=== PATIENT | female | born 1940 | race Caucasian/White ===

== ENCOUNTER 2020-08-09 12:03 | Inpatient (IN) | payer MEDICARE, OTHER ==
[~2020-08-09] VITALS: Ht 147.3 cm; Wt 68.2 kg
[~2020-08-09 12:03] MED LIST: Estradiol0.5 MG PO; FISH1000; GEMF600 PO; Hydrocodone-Ap1 EA23 PO; LANS30EC PO; LOSHYD PO; SIMV10 PO; VITAMIN D32000 UNIT PO
[2020-08-09 13:38] LABS: Albumin, Blood 2.9 g/dL (3.4-5.0); Albumin/Globulin Ratio 0.7 (0.8-1.8); Bilirubin, Total 4.7 mg/dL (0.1-1.0); Bun/Creatinine Ratio 15.6 (12.0-20.0); Calcium, Blood 9.4 mg/dL (8.5-10.1); Creatinine, Blood 1.73 mg/dL (0.40-1.00); Globulin, Blood 4.4 g/dL (2.2-4.0); Potassium, Blood 3.9 mmol/L (3.5-5.5); Total Protein, Blood 7.3 g/dL (6.4-8.2); Troponin I 0.058 ng/mL (0.000-0.040)
[2020-08-09 14:23] LABS: Hematocrit 39.6 % (33.0-51.0); Hemoglobin 12.2 g/dL (11.5-16.0); Mean Corpuscular HGB 28.1 pg (26.0-34.0); Mean Corpuscular HGB Conc 30.8 g/dL (31.5-36.5); Mean Corpuscular Volume 91 fL (80-100); Mean Platelet Volume 11.7 fL (9.1-12.4); NRBC ABSOLUTE 0.02 K/mm3 (0.00-0.02); NRBC Auto 0.3 /100 WBC (0.0-0.2); Platelet Count 118 K/mm3 (150-400); RDW Coefficient Variation 17.7 % (11.7-14.2); RDW Standard Deviation 59.5 fL (35.1-46.3); Red Blood Cell Count 4.34 M/mm3 (3.80-5.20); White Blood Cell Count 5.86 K/mm3 (4.00-11.30)
[2020-08-09 14:53] LABS: BAND PERCENT MAN 10 % (0-8); BASOPHILS PERCENT MAN 0 % (0-2); EOSINOPHILS PERCENT MAN 0 % (0-6); LYMPHOCYTES ABSOLUTE MAN 0.58 K/mm3 (0.84-5.20); LYMPHOCYTES PERCENT MAN 10 % (21-46); METAMYELOCYTE ABSOLUTE MAN 0.05 K/mm3 (0.00-0.00); METAMYELOCYTE PERCENT MAN 1 % (0-0); MONOCYTES ABSOLUTE MAN 0.05 K/mm3 (0.16-1.47); MONOCYTES PERCENT MAN 1 % (4-13); NEUTROPHILS ABSOLUTE MAN 5.15 K/mm3 (1.96-9.15); SEG NEUTROPHILS PERCENT MAN 78 % (41-73); TOTAL CELLS COUNTED 100
[2020-08-09] MEDS ORDERED: LEVSOD100 PO (15:17)
[2020-08-09] MEDS ORDERED: CLOP75 PO (15:18)
[2020-08-09] MEDS ORDERED: FENOFIBRATE48 MG PO (15:18)
[2020-08-09] MEDS ORDERED: LATA.005SO BOTHEYES (15:18)
[2020-08-09] MEDS ORDERED: AMLO10 PO (15:18)
[2020-08-09] MEDS ORDERED: PANTOPRAZOLE SO40 M2 PO (15:19)
[2020-08-09] MEDS ORDERED: METOPROLOL TART50 M2 PO (15:19)
[2020-08-09] MEDS ORDERED: LOSARTAN POTAS100 M1 PO (15:19)
[2020-08-09] MEDS ORDERED: ROSUVASTATIN CA10 MG PO (15:20)
[2020-08-09] MEDS ORDERED: SODBIC650 PO (15:48)
[2020-08-09 16:08] LABS: Influenza A, PCR NEGATIVE (NEGATIVE); Influenza B, PCR NEGATIVE (NEGATIVE); Resp Syncytial Virus, PCR NEGATIVE (NEGATIVE); SARS-Cov-2 (COVID-19) PCR, MMC NEGATIVE (NEGATIVE)
[2020-08-09 17:45] LABS: PO2 Arterial 306 mmHg (80-100)
[2020-08-09 17:48] LABS: PCO2 Arterial 19.3 mmHg (35-45); pH Blood Arterial 7.22 (7.35-7.45)
--- NOTE | 2020-08-09 19:27 | NUR ---
Admission/[place] of Care: Patient arrived from ED at approx 1830hr, via stretcher, accompanied by RT and x2 ED RN's. Patient BP of systolic 90's upon arrival with levophed gtt infusing at 20mcg/min through peripheral IV in the rt wrist. Peripheral patent and intact upon arrival. Versed gtt also infusing at 4mg/hr. Unable to obtain further Bp's upon patient's arrival, spO2-98-100%, and HR showed sinus rhythm 100-110. Versed gtt then stopped. Dr. Sanders then to pt's room upon arrival. Informed Dr. Sanders of pt's status and received plan to set-up for Central venous line and arterial line. Central venous and arterial line then placed by Dr. Sanders in rt femoral, without difficulty. While lines being placed, received orders for Vasopressin, Bicarb gtt, and propofol gtt (per Dr. Sanders), all started through peripheral IV's in rt wrist and forarm. Non-invasive BP obtained to lt leg durine line placement, systolic in the 80's. Arterial line zeroed with adequate waveform on monitor, systolic in low 100's at shift change. OG tube to low intermittent suction, minimal clear drainage in tubing. Tolerating vent setting's without difficulty, AC 24/390/5/40%. Bedside report given to NOC shift RN.
[2020-08-09 19:52] LABS: Base Excess Venous -20.6 mmol/L; Bicarbonate Venous 10.5 mmol/L (24.0-30.0); PCO2 Venous 19.8 mmHg (38-42); PO2 Venous 221 mmHg (38-42); pH Blood Venous 7.19 (7.34-7.37)
[2020-08-09 20:07] LABS: International Normalized Ratio 1.6; Prothrombin Time Results 16.7 Sec (9.7-11.5)
--- NOTE | 2020-08-09 21:20 | NUR ---
DR. RIZVI CALLED DR. RIZVI WITH CTA OF ABDOMEN AND PELVIS RESULTS, WELL CRITICAL LABS. ORDERS ALREADY PLACED FOR BICARB PUSH 125MEQ STAT, WELL INCREASE GTT TO 150ML/HR.
--- NOTE | 2020-08-09 21:52 | NUR ---
DR. TIPTON CALLED DR. TIPTON TO INFORM HIM OF PNEUMOBILIA FROM CTA RESULTS. NO NEW ORDERS OR INTERVENTIONS AT THIS TIME.
--- NOTE | 2020-08-09 22:45 | NUR ---
ASSUMED PT CARE FROM JOSE MARCELINO AT [address] DR. RIZVI AT BEDSIDE PLACING CENTRAL LINE AND ARTERIAL LINE TO RIGHT FEMORAL SITE. INTUBATED AND SEDATED WITH PROPOFOL AT 15MCG/KG/MIN. VENT AC 24, VT 390, PEEP 5, FIO2 40%, RESP RATE 30'S. LEVOPHED AT 20MCG/MIN AND VASOPRESSIN AT 0.04 UNITS/MIN. BP SYSTOLIC 80'S FROM NON-INVASIVE PRESSURE THAT WAS OBTAINED ON LLE. UPON ARTERIAL LINE INSERTION, LINE WAS ZERO'D WITH PRESSURES 110-120'S SYSTOLIC. ORDERS FOR STAT CTA, WHICH PT WAS TRANSPORTED TO AROUND 2004 WITH RT TO MANAGE VENT. UPON RETURN FROM CT PT NOTED TO HAVE A MEDIUM, LIGHT KINSEY BOWEL MOVEMENT. ABDOMEN IS MODERATELY DISTENDED AND FIRM UPON PALPATION WITH HYPOACTIVE TONES TO UPPER QUADRANTS AND HYPERACTIVE TO LOWER QUADRANTS. MENDOZA CATHETER IS PATENT AND DRAINING CLEAR, BUT ORANGE COLORED URINE TO GRAVITY. TEMP 101.8. WAS UPDATED BY DR. RIZVI PRIOR TO HIM LEAVING FACILITY.
[2020-08-10 00:43] LABS: Base Excess Venous -12.7 mmol/L; Bicarbonate Venous 14.8 mmol/L (24.0-30.0); PCO2 Venous 32.4 mmHg (38-42); PO2 Venous 38.1 mmHg (38-42)
[2020-08-10 00:44] LABS: pH Blood Venous 7.26 (7.34-7.37)
[2020-08-10 01:01] LABS: Adenovirus F 40/41 Not Detected (NOT DETECT); Astrovirus Not Detected (NOT DETECT); Campylobacter Sp Not Detected (NOT DETECT); Cryptosporidium Not Detected (NOT DETECT); Cyclospora Cayetanensis Not Detected (NOT DETECT); E. Coli O157 Not Detected (NOT DETECT); Entamoeba Histolytica Not Detected (NOT DETECT); Enteroaggregative E. coli-EAEC Not Detected (NOT DETECT); Enteropathogenic E. coli-EPEC Not Detected (NOT DETECT); Enterotoxigenic E. coli-ETEC Not Detected (NOT DETECT); Giardia Lamblia Not Detected (NOT DETECT); Norovirus GI/GII Not Detected (NOT DETECT); Plesiomonas Shigelloides Not Detected (NOT DETECT); Rotavirus A Not Detected (NOT DETECT); Salmonella Sp Not Detected (NOT DETECT); Sapovirus Not Detected (NOT DETECT); Shiga Toxin-prod E. coli-STEC Not Detected (NOT DETECT); Shigella/Enteroin E. coli-EIEC Not Detected (NOT DETECT); Vibrio Cholerae Not Detected (NOT DETECT); Vibrio Sp Not Detected (NOT DETECT); Yersinia Enterocolitica Not Detected (NOT DETECT)
--- NOTE | 2020-08-10 03:33 | NUR ---
CALL TO DR. RIZVI D/T INCREASE IN PRESSOR REQUIREMENT. NEW ORDERS FOR EPI GTT AND OKAY TO DRAW AN ABG FROM THE ARTERIAL LINE INSTEAD OF A VBG.
[2020-08-10 03:43] LABS: PCO2 Arterial 23.3 mmHg (35-45); PO2 Arterial 83.7 mmHg (80-100); pH Blood Arterial 7.35 (7.35-7.45)
[2020-08-10 03:51] LABS: Source, Urine Clean Catch
[2020-08-10 03:57] LABS: Hematocrit 29.1 % (33.0-51.0); Hemoglobin 9.3 g/dL (11.5-16.0); Mean Corpuscular HGB 28.4 pg (26.0-34.0); Mean Corpuscular Volume 89 fL (80-100); Mean Platelet Volume 12.1 fL (9.1-12.4); NRBC ABSOLUTE 0.03 K/mm3 (0.00-0.02); NRBC Auto 0.3 /100 WBC (0.0-0.2); Platelet Count 72 K/mm3 (150-400); RDW Coefficient Variation 18.1 % (11.7-14.2); RDW Standard Deviation 60.4 fL (35.1-46.3); Red Blood Cell Count 3.27 M/mm3 (3.80-5.20); White Blood Cell Count 10.96 K/mm3 (4.00-11.30)
[2020-08-10 04:06] LABS: Blood, Urine 5+ (Neg); Glucose Qualitative, Urine Neg (Neg); Ketones, Urine 1+ (Neg); Leukocyte Esterase, Urine 1+ (Neg); Nitrite, Urine Pos (Neg); Protein, Urine 3+ (Neg); Specific Gravity, Urine 1.015 (1.003-1.022); Urobilinogen, Urine 1+ (Normal)
[2020-08-10 04:09] LABS: Appearance, Urine Hazy (Clear); Bilirubin, Urine 2+ (Neg); Color, Urine Amber (P-Yellow)
[2020-08-10 04:18] LABS: Amorphous Light (0-Heavy); Bacteria Many /hpf; Red Blood Cells, Urine 0-2 /hpf (0-2); Squamous Epithelial Cells Few /hpf (Few)
[2020-08-10 04:33] LABS: Magnesium, Blood 1.4 mg/dL (1.6-2.4)
[2020-08-10 04:39] LABS: Albumin/Globulin Ratio 0.6 (0.8-1.8); Bilirubin, Total 4.3 mg/dL (0.1-1.0); Bun/Creatinine Ratio 14.5 (12.0-20.0); Creatinine, Blood 2.56 mg/dL (0.40-1.00); Globulin, Blood 3.1 g/dL (2.2-4.0); Phosphorus, Blood 4.1 mg/dL (2.5-4.9); Potassium, Blood 3.1 mmol/L (3.5-5.5); Troponin I 3.73 ng/mL (0.000-0.040)
[2020-08-10 04:40] LABS: Calcium, Blood 6.7 mg/dL (8.5-10.1); Total Protein, Blood 5.1 g/dL (6.4-8.2)
--- NOTE | 2020-08-10 05:15 | NUR ---
CHANGE IN CONDITION/END OF SHIFT SUMMARY CRITICAL LAB RESULTS OF LACTIC ACID 11.6 AND TROPONIN OF 3.73, WHICH WERE CALLED TO DR. RIZVI, WELL UPDATED ON INCREASED PRESSOR REQUIREMENTS. NEW ORDERS FOR 2L BOLUS OF NS, WELL TO START NEOSYNEPHRINE GTT INSTEAD OF EPI GTT. ORDERS TO CALL DR. TIPTON REGARDING CHANGE IN CONDITION, WELL TO OBTAIN STAT ECHO AND LIVER ULTRASOUND PENDING DR. TIPTON'S DECISION TO TAKE PT TO SURGERY. CALLED DR. TIPTON IN REGARDS TO PT'S OVERALL DECLINE AND INCREASE NEED FOR PRESSORS, WELL CONCERN FOR PNEUMOBILIA RESULTS FROM CTA OF ABDOMEN. DR. TIPTON ACKNOWLEDGED AND PLAN IS FOR HIM TO COME ASSESS PT FOR SURGERY. DR. RIZVI CALLED BACK WITH AN UPDATE REGARDING DR. TIPTON'S DECISION; NEW ORDERS TO CONTINUE ON WITH THE STAT ECHO AND TO OBTAIN EKG. NS BOLUS CURRENTLY INFUSING. NEOSYNEPHRINE AT 10MCG/MIN, LEVOPHED 20MCG/MIN, VASOPRESSIN AT 0.04 UNITS/MIN AND BP'S STABLE 110-120'S; MAP'S >65 AT THIS TIME. BICARB GTT DROPPED TO 100MLS/HR PER DR. RIZVI, WELL ELECTROLYTE REPLACEMENT OF BOTH CALCIUM AND POTASSIUM. VENT SETTINGS REMAIN UNCHANGED AT AC 24, VT 390, PEEP 5, FIO2 40%; RESP RATE 26. BIOX PROBE TO FOREHEAD D/T PT VERY COOL TO THE TOUCH WITH POOR PERIPHERAL PERFUSION. ARTERIAL LINE REMAINS TO RIGHT FEMORAL SITE; GOOD WAVEFORM WITH DICROTIC NOTCH. CENTRAL LINE TO RIGHT FEMORAL SITE WELL; DRESSING CHANGED THIS SHIFT. ABDOMEN REMAINS VERY DISTENDED AND FIRM UPON PALPATION; NEW ORDERS FOR ABDOMINAL PRESSURES. OG TO LIS WITH NO OUTPUT. PROPOFOL AT 30MCG/KG/MIN. PT WAS DOWN TO 15MCG/KG/MIN; HOWEVER, WASN'T TOLERATING VENT WELL AND CONTINUED TO HAVE COUGHING EPISODES; PT APPEARS MORE COMFORTABLE AT THIS TIME. PRIOR TO INCREASING PROPOFOL PT WAS ABLE TO BARELY OPEN HER EYES UPON VERBAL COMMAND; HOWEVER, UNABLE TO FOLLOW ANY COMMANDS. POSITIVE GAG REFLEX WELL. PUPILS REMAIN UNEQUAL WITH RIGHT IRREGULARLY SHAPED; HOWEVER, BOTH ARE REACTIVE TO LIGHT. HAS BEEN CALLED AND IS ON HIS WAY IN D/T DECLINE IN PT'S CONDITION. WILL CONTINUE TO MONTIOR UNTIL REPORT IS HANDED OFF TO ONCOMING RN
[2020-08-10 05:31] LABS: BAND PERCENT MAN 15 % (0-8); BASOPHILS PERCENT MAN 1 % (0-2); EOSINOPHILS ABSOLUTE MAN 0.32 K/mm3 (0.00-0.68); EOSINOPHILS PERCENT MAN 3 % (0-6); LYMPHOCYTES ABSOLUTE MAN 0.87 K/mm3 (0.84-5.20); LYMPHOCYTES PERCENT MAN 8 % (21-46); METAMYELOCYTE ABSOLUTE MAN 0.21 K/mm3 (0.00-0.00); METAMYELOCYTE PERCENT MAN 2 % (0-0); MONOCYTES ABSOLUTE MAN 0.98 K/mm3 (0.16-1.47); MONOCYTES PERCENT MAN 9 % (4-13); MYELOCYTE PERCENT MAN 1 % (0-0); NEUTROPHILS ABSOLUTE MAN 8.32 K/mm3 (1.96-9.15); SEG NEUTROPHILS PERCENT MAN 61 % (41-73); TOTAL CELLS COUNTED 100
--- NOTE | 2020-08-10 06:33 | NUR ---
DR. TIPTON AT BEDSIDE WITH DISCUSSING PLAN OF CARE
--- NOTE | 2020-08-10 06:48 | NUR ---
DR. TIPTON SPOKE WITH PT'S GRANDSON WHOM IS AN INFECTIOUS DISEASE PHYSICIAN AT [facility]. GRANDSON WOULD LIKE TO SPEAK WITH DR. RIZVI BEFORE FURTHER DECISIONS ARE MADE.
--- NOTE | 2020-08-10 06:59 | NUR ---
KIER PLEATER AT BEDSIDE
--- NOTE | 2020-08-10 08:00 | NUR ---
PT REMAINS INTUBATED, SEDATED, AND RESTRAINED. SEDATED ON PROPOFOL @ 30 MCG/KG/MIN. PT GRIMACING, AGITATED, PULLING ON RESTRAINTS. RR 32-MED WITH FENTANYL 50 MCG IVP X1 FOR PAIN/SEDATION ADJUNCT. PT REMAINS FEBRILE. HR 110-120'S SINUS TACH. MAP 60-65 WITH LEVOPHED @ 30 MCG/MIN, VASOPRESSIN @0.04 UNITS/MIN, NEOSYNEPHRINE @ 30 MCG/KG/MIN. LUNGS COARSE R>L. SATS >90% ON VENT:AC 24, TV 390, PEEP 5, FIO2 40% OGT TO LIS WITH SCANT AMOUNT OF BILIOUS DRAINAGE. ABDOMEN DISTENDED AND FIRM-NO BT'S AUSCULTATED. MENDOZA TO BEDSIDE DRAINAGE WITH SCANT AMOUNT OF DARK, CARLA URINE OUTPUT. SPOKE WITH DR. RIZVI. UPDATED TO CURRENT VS, STATUS, LABS. ORDERS GIVEN FOR MG+REPLACEMENT-SEE EMAR. K+ REPLACEMENT INFUSING-SEE EMAR. ABG AND LACTIC ACID DRAWN AND RUN STAT. PT SPOUSE @ BEDSIDE. AWAITING ARRIVAL OF PT GRANDSON WHO IS A PHYSICIAN. WILL DISCUSS PLAN OF CARE AT THAT TIME.
[2020-08-10 08:28] LABS: PCO2 Arterial 24.8 mmHg (35-45); PO2 Arterial 70.2 mmHg (80-100); pH Blood Arterial 7.31 (7.35-7.45)
--- NOTE | 2020-08-10 09:45 | NUR ---
DR. RIZVI IN TO SEE PT AND DISCUSS PLAN OF CARE WITH FAMILY. PT MADE DNR. DR. VICTOR FROM RADIOLOGY CONTACTED BY DR. RIZVI REQUESTING PLACEMENT OF CHOLYCYSTOSTOMY TUBE. DR. VICTOR TO COME BY LATER TODAY. HEPARIN HAS BEEN HELD.
--- NOTE | 2020-08-10 12:12 | NUR ---
MAINTAINING MAP 60-65 ON VASOPRESSIN @ 0.04 UNITS/KG/MIN AND LEVOPHED@ 20 MCG/MIN. SATS>90% ON FIO2 40%-NO VENT CHANGES. SUPRAPUBIC PRESSURE 13. RADIOLOGY HERE TO PLACE CHOLYCYSTECTOMY TUBE. INFROMED CONSENT OBTAINED OVER THE PHONE FROM PT GRANDALAYNA BARRETT AND HER SPOUSE ROBERTA.
--- NOTE | 2020-08-10 14:00 | NUR ---
PT TO CT SCAN OF ABDOMEN FOR RADIOLOGY TO PLACE CHOLYCYSTOTOMY TUBE. PT TOLERATED WELL. APROX. 30 CC OB BILIOUS FLUID ASPIRATED AND SENT TO LAB. DR. RIZVI ORDERED LABS ON THE FLUID SENT. CHOLYCYSTOTOMY TUBE TO GRAVITY DRAINAGE. SMALL AMOUNT OF SEROSANGINOUS DRAINAGE TO DRAIN TUBING AND SMALL AMOUNT OF PURULENT DRAINAGE NOTED.
[2020-08-10 14:52] LABS: Automated BF RBC Count 0.004 M/mm3 (0-0); Body Fluid WBC Count 2148 /mm3 (0-999); RBC Count, Body Fluid 4000 /mm3 (0-0)
[2020-08-10 14:55] LABS: Automated BF WBC Count 2.148 K/mm3 (0-999)
[2020-08-10 15:38] LABS: PCO2 Arterial 22.3 mmHg (35-45); PO2 Arterial 73.5 mmHg (80-100); pH Blood Arterial 7.32 (7.35-7.45)
[2020-08-10 16:10] LABS: Total Cell Count, Body Fluid 100
[2020-08-10 16:11] LABS: Appearance, Body Fluid Cloudy (Clear)
--- NOTE | 2020-08-10 16:40 | NUR ---
PT REMAINS INTUBATED, SEDATED, AND RESTRAINED. PROPOFOL @ 30 MCG/KG/MIN AND FENTANYL 50 MCG IVP FOR PAIN/SEDATION ADJUNCT-SEE EMAR. ECG SHOWS INTERMITTENT AFIB VS. SR WITH FREQUENT PAC'S. MAP 60-65 WITH LEVOPHED @ 20MCG/MIN AND VASOPRESSIN @ 0.04 UNITS/MIN. LUNGS REMAIN COARSE. NO VENT CHANGES. MAINTAINS SATS>90% ON FIO2 40% SPUTUM SPECIMEN SENT. CHOLYCYSTOTOMY TUB WITH SMALL AMOUNT OF SEROSANGINOUS DRAINAGE. STILL SCANT AMOUNT OF PURULENT DRAINAGE TO TUBING. ABG AND LACTIC ACID DRAWN. RESULTS PHONED TO DR. RIZVI NO NEW ORDERS. ALSO, REVIEWED CURRENT VS AND I&O WITH DR. RIZVI NO NEW ORDERS.
--- NOTE | 2020-08-10 23:25 | NUR ---
ASSUMED PT CARE FROM JOSE LOYA AT 1915 PT REMAINS INTUBATED AND SEDATED. PROPOFOL AT 30MCG/KG/MIN. VENT AC 24, VT 390, PEEP 5, FIO2 40%. RESP RATE 24. BIOX >90%. ARTERIAL LINE TO RIGHT FEMORAL SITE, WHICH WAS ZEROED; PRESSURES STABLE, SEE FLOWSHEET. LEVOPHED AT 10MCG/ZAIDA. VASOPRESSIN AT 0.04 UNITS/MIN UPON ASSUMPTION OF CARES; HOWEVER, CURRENTLY VASOPRESSIN IS OFF ADN LEVOPHED IS AT 5MCG/MIN. BICARB INFUSING AT 100MLS/HR VIA CENTRAL LINE TO RIGHT FEMORAL SITE. ABDOMINAL PRESSURES OBTAINED OF 12. MENDOZA CATHETER IS PATENT AND DRAINING DARK CARLA COLORED URINE. ABDOMEN REMAINS DISTENDED AND FIRM WITH HYPOACTIVE TONES. LUNG SOUNDS REMAIN CLEAR WITH OCCASIONAL COUGH; THICK PLUGS SUCTIONED THAT ARE KINSEY IN COLOR. ORAL CARES COMPLETED WITH STREAKED BLOOD NOTED WITH DEEP SUBGLOTTIC SUCTIONING. PT NOTED TO BE IN A FIRST DEGREE AV BLOCK WITH OCCASIONAL WHAT APPEARS TO BE JUNCTIONAL BEATS. THEREFORE, EKG OBTAINED D/T RHYTHM CHANGE. EKG RESULTS INDICATE A 1ST DEGREE AV BLOCK WITH FUSION COMPLEXES. DURING BRIEF SEDATION VACATION PT WAS ABLE TO OPEN EYES TO VERBAL STIMULI; HOWEVER, UNABLE TO FOLLOW COMMANDS. PURPOSEFUL MOVEMENT TOWARD ETT WITH LEFT HAND. MOVES ALL EXTREMITIES. HOWEVER, D/T PT HAVING CONTINUOUS COUGHING EPISODES WITH HIGH PEAK PRESSURES; PROPOFOL INCREASED BACK TO 30MCG/KG/MIN. PT APPEARS COMFORTABLE AT THIS TIME.
[2020-08-11 04:18] LABS: Hematocrit 29.1 % (33.0-51.0); Hemoglobin 9.8 g/dL (11.5-16.0); Mean Corpuscular HGB 29.3 pg (26.0-34.0); Mean Corpuscular HGB Conc 33.7 g/dL (31.5-36.5); Mean Corpuscular Volume 87 fL (80-100); NRBC ABSOLUTE 0.04 K/mm3 (0.00-0.02); NRBC Auto 0.2 /100 WBC (0.0-0.2); Platelet Count 53 K/mm3 (150-400); RDW Coefficient Variation 18.4 % (11.7-14.2); RDW Standard Deviation 58.7 fL (35.1-46.3); Red Blood Cell Count 3.35 M/mm3 (3.80-5.20); White Blood Cell Count 17.02 K/mm3 (4.00-11.30)
[2020-08-11 04:52] LABS: Albumin, Blood 1.7 g/dL (3.4-5.0); Albumin/Globulin Ratio 0.5 (0.8-1.8); Bilirubin, Total 3.9 mg/dL (0.1-1.0); Bun/Creatinine Ratio 14.1 (12.0-20.0); Calcium, Blood 6.8 mg/dL (8.5-10.1); Creatinine, Blood 2.62 mg/dL (0.40-1.00); Globulin, Blood 3.4 g/dL (2.2-4.0); Magnesium, Blood 1.8 mg/dL (1.6-2.4); Phosphorus, Blood 3.9 mg/dL (2.5-4.9); Potassium, Blood 3.4 mmol/L (3.5-5.5); Total Protein, Blood 5.1 g/dL (6.4-8.2)
[2020-08-11 05:18] LABS: BAND PERCENT MAN 33 % (0-8); BASOPHILS PERCENT MAN 0 % (0-2); EOSINOPHILS PERCENT MAN 0 % (0-6); LYMPHOCYTES ABSOLUTE MAN 0.85 K/mm3 (0.84-5.20); LYMPHOCYTES PERCENT MAN 5 % (21-46); METAMYELOCYTE ABSOLUTE MAN 0.34 K/mm3 (0.00-0.00); METAMYELOCYTE PERCENT MAN 2 % (0-0); MONOCYTES ABSOLUTE MAN 0.51 K/mm3 (0.16-1.47); MONOCYTES PERCENT MAN 3 % (4-13); NEUTROPHILS ABSOLUTE MAN 15.31 K/mm3 (1.96-9.15); SEG NEUTROPHILS PERCENT MAN 57 % (41-73); TOTAL CELLS COUNTED 100
[2020-08-11 05:21] LABS: PCO2 Arterial 23.4 mmHg (35-45); PO2 Arterial 62.7 mmHg (80-100)
[2020-08-11 05:28] LABS: Troponin I 7.83 ng/mL (0.000-0.040)
--- NOTE | 2020-08-11 05:51 | NUR ---
END OF SHIFT SUMMARY VENT AC 24, VT 390, PEEP 5, FIO2 35%, RESP RATE 24. BIOX >90%. PROPOFOL AT 30MCG/KG/MIN. PT RESPONDS TO NOXIOUS STIMULI. DURING SHORT SEDATION VACATION, PT DID OPEN EYES (BARELY) TO VERBAL STIMULI; HOWEVER, DID NOT FOLLOW COMMANDS. PURPOSEFUL MOVEMENT NOTED TOWARD ETT WITH LEFT HAND. GENERALIZED MOVEMENT NOTED TO ALL OTHER EXTREMITIES. LUNG SOUNDS HAVE OCCASIONAL COARSE LUNG SOUNDS NOTED, BUT CLEARED WITH ET SUCTIONING; MODERATE THIN CLEAR/YELLOW SPUTUM NOTED. VASOPRESSIN REMAINS OFF, LEVOPHED TITRATED LOW 5MCG/MIN; HOWEVER, PT NOTED TO HAVE A RHYTHM CHANGE AROUND 2330; THEREFORE, EKG OBTAINED. FIRST DEGREE AV BLOCK NOTED WITH FUSION COMPLEXES. THEREFORE, WHEN PT SUSTAINS WITH THESE FUSION COMPLEXES, HER SBP TENDS TO DROP TO 80-90'S. LEVOPHED IS CURRENTLY AT 8MCG/MIN. HR REMAINS 70-80'S. NO WIDENED QRS COMPLEXES NOTED, NOR RUNS OF V-TACH; RATE HAS REMAINED THE SAME. BICARB INFUSING AT 100MLS/HR. ARTERIAL LINE REMAINS INTACT TO RIGHT FEMORAL SITE. OG TO LIS WITH 300CC OF BRIGHT GREEN BILE NOTED IN CANISTER. PERCUTANEOUS DRAIN REMAINS TO RUQ WITH 10CC OF ORANGE BILIOUS DRAINAGE NOTED. WILL CONTINUE TO MONITOR UNTIL REPORT IS HANDED OFF TO ONCOMING RN
--- NOTE | 2020-08-11 06:42 | NUR ---
DR. RIZVI UPDATE INFORMED OF LAB RESULTS. NEW ORDERS TO DISCONTINUE BICARB GTT, DECREASE RESP RATE TO 16 ON VENT, ADMINISTER 2GM CACLIUM GLUCONATE, 40MG OF LASIX, AND 20MEQ OF POTASSIUM.
--- NOTE | 2020-08-11 07:57 | NUR ---
PT REMAINS INTUBATED, SEDATED, AND RESTRAINED. PT GRIMACING, TENSE, PEAK PRESSURE 40'S. MED WITH FENTANYL 50MCG IVP X 1 PAIN/SEDATION ADJUNCT. PROPOFOL DRIP CONTINUES @ 30 MCG/KG/MIN. PT AFEBRILE THIS AM. ECG SHOWS SR WITH FIRST DEGREE AV BLOCK WITH RATE 70-80'S. MAP 60-65 WITH LEVOPHED@7 MCG/MIN. LASIX, KCL&CA+REPLACEMENT INITIATED-SEE EMAR. LUNGS REMAIN COARSE. FEW THICK, WHITE ETT SECRETIONS. ETT TO VENT:AC TO 16 @ 0730, TV 390, PEEP 5, FIO2 35%-SATS>90% ABDOMEN REMAINS DISTENDED AND FIRM WITH ABSENT BT'S. CHOLYCYSTOTOMY TUBE WITH SCANT AMOUNT OF SEROSANGINOUS DRAINAGE. MENDOZA TO BSD WITH SMALL AMOUNT OF DARK, CARLA URINE OUTPUT.
--- NOTE | 2020-08-11 10:00 | NUR ---
PT GRIMACING, RR 28, PEAK PRESSURE 38, APPEARS RESTLESS, PT MOVING ALL EXTREMITIES AND PULLING ON RESTRAINTS. TITRATED PROPOFOL UP TO 40 MCG/KG/MIN AND MED WITH FENTANYL 50 MCG IVP X1-SEE EMAR. LEVOPHED TITRATED UP TO 8 MCG/MIN TO KEEP MAP 60-65.
[2020-08-11 11:05] LABS: PCO2 Arterial 30.8 mmHg (35-45); PO2 Arterial 68.2 mmHg (80-100); pH Blood Arterial 7.44 (7.35-7.45)
--- NOTE | 2020-08-11 12:00 | NUR ---
PT GRIMACING AND AGITATED WITH STIMULI. PEAK PRESSURES 40. PROPOFOL INCREASED TO 35 MCG/KG/MIN AND MED WITH FENTANYL FOR PAIN/SEDATION ADJUNCT. MAINTAINS MAP 60-65 ON LEVOPHED @ 8 MCG/MIN. HR 70'S-SR WITH FIRST DEGREE AV BLOCK. MG+REPLACEMENT INITIATED-SEE EMAR. NO VENT CHANGES. MAINTAINS SATS>90% ON FIO2 30%. OGT CONTINUES TO PUT OUT MODERATE TO LARGE AMOUNT OF BRIGHT GREEN DRAINAGE. RIGHT QUADRANT CHOLYCYSTOTOMY TUBE INSERTION SITE CLEAR-SMALL AMOUNT OF SEROSANGINOUS DRAINAGE. SUPRAPUBIC PRESSURE 4. URINE OUTPUT POOR DESPITE LASIX. ABG AND TROPONIN DRAWN AND SENT TO LAB-RESULTS TO DR. RIZVI NOTIFIED. NO NEW ORDERS.
--- NOTE | 2020-08-11 16:08 | NUR ---
PT RESTING QUIETLY ON VENT WHEN NOT DISTURBED. RESPONDS TO NOXIOUS STIMULI BY GRIMACING AND MOVING EXTREMITIES ABOUT THE BED. NOT FOLLOWING COMMANDS. PEAK PRESSURES TO THE 40'S WITH AGITATION/MED WITH FENTANY 50 MCG IVP FOR PAIN AND SEDATION ADJUNCT. PROPOFOL @ 35 MCG/KG/MIN. MAINTAINS MAP 60-65 ON LEVOPHED @ 8 MCG/MIN. PT SPOUSE AT THE BEDSIDE-UPDATED TO STATUS AND PLAN OF CARE.
--- NOTE | 2020-08-11 18:15 | NUR ---
MAP TRENDING LESS THAN 60. LEVOPHED TITRATED UP TO 12 MCG/MIN TO MAINTAIN MAP>60-65.
--- NOTE | 2020-08-11 20:00 | NUR ---
ASSUMED PT CARE FROM JOSE LOYA PT REMAINS INTUBATED AND SEDATED. VENT AC 16, VT 390, PEEP 5, FIO2 30%, RESP RATE 16. BIOX >90%. PROPOFOL AT 30MCG/KG/MIN. PT MOVES ALL EXTREMITIES AND GRIMACES TO PAIN. FENTANYL 25-50MCG PRN PAIN. LEVOPHED TITRATED DOWN TO 10MCG/MIN DURING BEDSIDE REPORT D/P SBP 130'S. PT IS CURRENTLY AT 6MCG/MIN. PT REMAINS IN AV BLOCK; HR 70'S. ARTERIAL LINE TO RIGHT FEMORAL SITE; LINE HAS BEEN ZEROED. CENTRAL LINE TO RIGHT FEMORAL SITE WELL. PERCUTANEOUS DRAIN TO RUQ WITH BROWNISH/ORANGE BILIOUS DRAINGE NOTED TO BAG. ABDOMEN REMAINS SEVERELY DISTENDED AND FIRM UPON PALPATION. ACTIVE BTX4. MENDOZA CATHETER IS PATENT AND DRAINING CLEAR YELLOW URINE TO GRAVITY.
[2020-08-12 03:43] LABS: Hematocrit 30.2 % (33.0-51.0); Hemoglobin 10.4 g/dL (11.5-16.0); Mean Corpuscular HGB 29.1 pg (26.0-34.0); Mean Corpuscular HGB Conc 34.4 g/dL (31.5-36.5); Mean Corpuscular Volume 85 fL (80-100); NRBC ABSOLUTE 0.15 K/mm3 (0.00-0.02); NRBC Auto 0.5 /100 WBC (0.0-0.2); Platelet Count 73 K/mm3 (150-400); RDW Coefficient Variation 17.4 % (11.7-14.2); RDW Standard Deviation 54.1 fL (35.1-46.3); Red Blood Cell Count 3.57 M/mm3 (3.80-5.20); White Blood Cell Count 29.43 K/mm3 (4.00-11.30)
[2020-08-12 03:46] LABS: Mean Platelet Volume 13.2 fL (9.1-12.4)
[2020-08-12 03:59] LABS: Albumin, Blood 1.7 g/dL (3.4-5.0); Bilirubin, Total 3.7 mg/dL (0.1-1.0); Bun/Creatinine Ratio 16.7 (12.0-20.0); Calcium, Blood 7.3 mg/dL (8.5-10.1); Creatinine, Blood 2.46 mg/dL (0.40-1.00); Phosphorus, Blood 4.8 mg/dL (2.5-4.9); Potassium, Blood 3.3 mmol/L (3.5-5.5)
[2020-08-12 04:11] LABS: Albumin/Globulin Ratio 0.4 (0.8-1.8); Globulin, Blood 3.8 g/dL (2.2-4.0); Total Protein, Blood 5.5 g/dL (6.4-8.2)
--- NOTE | 2020-08-12 04:11 | NUR ---
RHYTHM CHANGE NOTIFIED DR. RIZVI OF RHYTHM CHANGE INTO AN AFIB/AFLUTTER. PT NOTED TO BE "IN AND OUT" OF THOSE RHYTHMS AND BACK TO SINUS WITH 1ST DEGREE AV BLOCK T/O NIGHT; HOWEVER, AROUND 0200 PT WAS NOTED TO CONSISTENTLY STAY IN AFIB/FLUTTER. EKG CONFIRMS AFIB. HR REMAINS 60-70'S. BP'S REMAIN STABLE.
[2020-08-12 05:35] LABS: PCO2 Arterial 30.3 mmHg (35-45); PO2 Arterial 71.2 mmHg (80-100); pH Blood Arterial 7.51 (7.35-7.45)
[2020-08-12 06:02] LABS: BAND PERCENT MAN 30 % (0-8); BASOPHILS PERCENT MAN 0 % (0-2); EOSINOPHILS PERCENT MAN 0 % (0-6); LYMPHOCYTES ABSOLUTE MAN 0.88 K/mm3 (0.84-5.20); LYMPHOCYTES PERCENT MAN 3 % (21-46); MONOCYTES ABSOLUTE MAN 0.58 K/mm3 (0.16-1.47); MONOCYTES PERCENT MAN 2 % (4-13); NEUTROPHILS ABSOLUTE MAN 27.95 K/mm3 (1.96-9.15); SEG NEUTROPHILS PERCENT MAN 65 % (41-73); TOTAL CELLS COUNTED 100
--- NOTE | 2020-08-12 06:27 | NUR ---
END OF SHIFT SUMMARY PT CURRENTLY OFF SEDATION FOR HER SBT; HOWEVER, PT SLOW TO WAKE UP. WHEN SWITCHED OVER TO SPONTANEOUS SHE WASN'T PULLING HER OWN TIDAL VOLUMES. THEREFORE, VENT REMAINS ON AC 16, VT 390, PEEP 5, FIO2 30%. PT WILL OPEN EYES TO VERBAL STIMULI. DOESN'T FOLLOW COMMANDS, BUT WILL NOD HEAD YES/NO TO QUESTIONS. GAVE PT AN UPDATE TO WHERE SHE WAS AND WHY. PT NODDED "NO" TO NOT UNDERSTANDING HER CURRENT HEALTH CONDITION. AND GRANDSON GIVEN UPDATES ON PT'S CONDITION. LEVOPHED WAS ABLE TO COME OFF ONCE PROPOFOL WAS TURNED OFF. HOWEVER, PT JUST RECEIVED LASIX AND MAY NEED LOW DOSE TO MAINTAIN HER PRESSURES. PERCUTANEOUS DRAIN TO RUQ REMAINS DRAINING BROWN/ORANGE BILIOUS OUTPUT. MENDOZA CATHETER DRAINING CLEAR YELLOW URINE. MINIMAL CLEAR, THIN SPUTUM SUCTIONED VIA ET. PT IS CURRENTLY TOLERATING BEING OFF SEDATION. EASILY AROUSABLE. WILL CONTINUE TO MONITOR AND REASSESS UNTIL REPORT IS HANDED OFF TO ONCOMING RN.
--- NOTE | 2020-08-12 07:30 | NUR ---
ASSUMED CARE: REPORT RECEIVED FROM ROBERT Edgar RN. ASSUMED CARE OF THIS PT AT APPROX 0700. ON ASSESSMENT, THE PT IS INTUBATED W/ 7.5 ETT NOTED TO BE 22.0 CM VERONICA. SEDATION HAS BEEN OFF SINCE APPROX 0450 THIS AM. PT IS MINIMALLY RESPONSIVE TO VERBAL STIMULUS AT THIS TIME. SHE MOVES ALL EXTREMITIES, R SIDE MOVEMENT STRONGER THAN L SIDE MOVEMENT. NOT FOLLOWING DIRECTIONS AT THIS TIME. LS ARE CLEAR, DIM IN BASES, PT ON VENT W/ SETTINGS: AC 16/390/5/30%. O2 SATS > 92%. MONITOR SHOWS AFLUTTER W/ HR 50-60s, LEVOPHED INFUSING FOR HYPOTENSION. OGT IN PLACE TO LIS. TEMP MENDOZA PATENT/ DRAINING DARK YELLOW URINE. SKIN CONDITION OVERALL FRAGILE W/ MULTIPLE ABRASIONS SCATTERED T/O BODY SURFACE. WILL CONTINUE TO MONITOR & UPDATE NEEDED.
--- NOTE | 2020-08-12 10:15 | NUR ---
DR CARRIZALES / DR VENTURA: DR CARRIZALES AT BEDSIDE TO EVAL PT. SBT SINCE 0950 W/ VENT SETTINGS PS 10, PEEP 5 & 30% FIO2. HE HAS NO PLANS TO EXTUBATE THIS PT R/T HIGH PS REQUIREMENTS & PT NODDING HEAD "YES" WHEN ASKED IF SOB WHILE PS DECREASED TO 5. HE WOULD LIKE HER TO REMAIN OFF OF SEDATION & ON SBT FOR LONG TOLERATED. HE WOULD ALSO LIKE TUBE FEEDINGS TO BEGIN DURING THIS SHIFT, DIETARY UPDATED DURING ROUNDING. DR VENTURA AT BEDSIDE TO EVAL PT. ORDERS PLACED FOR LOVENOX DISCUSSED PT's PLT COUNT REMAINS LOW. PROVIDER STS THAT SHE WILL D/C THIS ORDER. NO OTHER CHANGES AT THIS TIME.
--- NOTE | 2020-08-12 17:21 | NUR ---
SHIFT SUMMARY: NO ACUTE CHANGES SINCE PRIOR UPDATES. PT REMAINS INTUBATED & SEDATED. SHE CONTINUES TO BE RESPONSIVE TO PAINFUL STIMULUS, GRIMACING AT TIMES W/ ADLs. LS CLEAR T/O, PT COUGHING OCCASIONALLY W/ MOD AMNTS THICK KINSEY SPUTUM SUCTIONED THROUGH ETT. VENT SETTINGS: AC 12/275/5/30% W/ O2 SATS > 92%. MONITOR SHOWS AFIB W/ HR 60s, LEVOPHED INFUSING AT 3 MCG/MIN FOR HYPOTENSION - SEE VS. OGT W/ TUBE FEED OF PIVOT 1.5 INFUSING AT GOAL RATE OF 20 ML/HR W/ 30 ML H2O FLUSH Q4H. PERC DRAIN TO RUQ CONTINUES DRAINING MOD AMNT BROWN LIQUID. TEMP MENDOZA PATENT/ DRAINING DARK YELLOW URINE W/ OUTPUT IMPROVED THIS SHIFT - SEE I&O. SKIN CONDITION OVERALL UNCHANGED, Q2H REPOSITIONING TO MAINTAIN SKIN INTEGRITY. WILL CONTINUE TO MONITOR & REPORT OFF TO ONCOMING RN.
--- NOTE | 2020-08-12 18:41 | NUR ---
SHIFT SUMMARY / UPDATE: PT HAS ESCALATED SLIGHTLY THIS AFTERNOON. OVERALL, HE IS PLEASANT, COOPERATIVE & REDIRECTABLE. AT TIMES, HE BECOMES INCREASINGLY AGITATED, ASKING TO BE "RELEASED" & HALLUCINATING CONVERSATIONS. THIS RN HAS NOTIFIED MEAGHAN Kirkpatrick NP, REGARDING THIS ISSUE & PRECEDEX HAS BEEN ORDERED. CURRENTLY INFUSING AT 0.4 MCG/KG/HR. LS CLEAR T/O, PT ON RA W/ O2 SATS > 92%. MONITOR SHOWS SR W/ HR 70s, BP STABLE. PT TOLERATING PO INTAKE WELL & SWALLOWING SAFELY WHEN FULLY AWAKE. PT VOIDS W/O DIFFICULTY & IS CONTINENT OF URINE. SKIN CONDITION OVERALL UNCHANGED & PT HAS BEEN ABLE TO REPOSITION SELF IN BED FOR COMFORT APPROX Q2H. WILL CONTINUE TO MONITOR & REPORT OFF TO ONCOMING RN.
--- NOTE | 2020-08-12 19:09 | NUR ---
7.5 ETT, 21 CM AT GUMS
--- NOTE | 2020-08-12 19:15 | NUR ---
ASSUMED PT CARE REPORT AND BEDSIDE ROUNDING WITH JAILYN RN AT 1900, ASSUMED PT CARE. PT INTUBATED AND SEDATED AND RESTING COMFORTABLY. VENT SETTINGS CURRENTLY AC12/275/5/30%, SMALL TO MODERATE AMOUNT OF KINSEY SECRETIONS. PT HAS OG WITH PIVOT INFUSING AT GOAL OF 20ML/HR WITH Q4H 30ML H2O FLUSHES. ABD SOFT. BOWEL TONES HYPOACTIVE. PT HAS TEMP PROBE MENDOZA DRAINING CLEAR YELLOW URINE. PT AFEBRILE. PT HAS CL TO RIGHT GROIN WELL AN ARTERIAL LINE. DRESSING C/D/I AND SITE IS WELL APPEARING. PT HAS PROPOFOL INF @ 30MCG/KG/MIN, LEVOPHED INF @ 3MCG/MIN AND NS INF @ 10ML/HR. PT ON ELECTRICAL MACHINIST, RATE 60-70 AFIB CURRENTLY. PRESSURES LABILE PER REPORT. MAP >65. PERCUTANEOUS DRAIN TO RIGHT FLANK AREA WITH BROWNISH DRAINAGE TO BAG. SKIN WELL APPEARING. SEE FULL SHIFT ASSESSMENT.
[2020-08-13 04:05] LABS: Hematocrit 30.7 % (33.0-51.0); Mean Corpuscular HGB 28.4 pg (26.0-34.0); Mean Corpuscular HGB Conc 32.6 g/dL (31.5-36.5); Mean Corpuscular Volume 87 fL (80-100); NRBC ABSOLUTE 0.08 K/mm3 (0.00-0.02); NRBC Auto 0.2 /100 WBC (0.0-0.2); Platelet Count 90 K/mm3 (150-400); RDW Coefficient Variation 17.5 % (11.7-14.2); RDW Standard Deviation 56.4 fL (35.1-46.3); Red Blood Cell Count 3.52 M/mm3 (3.80-5.20); White Blood Cell Count 37.79 K/mm3 (4.00-11.30)
[2020-08-13 04:07] LABS: BASOPHILS ABSOLUTE AUTO 0.02 K/mm3 (0.00-0.23); BASOPHILS PERCENT AUTO 0 % (0-2); EOSINOPHILS ABSOLUTE AUTO 0.01 K/mm3 (0.00-0.68); EOSINOPHILS PERCENT AUTO 0 % (0-6); IMMATURE GRAN ABSOLUTE AUTO 1.27 K/mm3 (0.00-0.10); IMMATURE GRAN PERCENT AUTO 3 % (0-1); LYMPHOCYTES ABSOLUTE AUTO 1.95 K/mm3 (0.84-5.20); LYMPHOCYTES PERCENT AUTO 5 % (21-46); MONOCYTES ABSOLUTE AUTO 2.36 K/mm3 (0.16-1.47); MONOCYTES PERCENT AUTO 6 % (4-13); NEUTROPHILS ABSOLUTE AUTO 32.18 K/mm3 (1.96-9.15); NEUTROPHILS PERCENT AUTO 85 % (41-73)
[2020-08-13 04:22] LABS: Bun/Creatinine Ratio 22.8 (12.0-20.0); Calcium, Blood 7.7 mg/dL (8.5-10.1); Creatinine, Blood 2.37 mg/dL (0.40-1.00); Magnesium, Blood 2.7 mg/dL (1.6-2.4); Phosphorus, Blood 4.7 mg/dL (2.5-4.9); Potassium, Blood 2.8 mmol/L (3.5-5.5)
--- NOTE | 2020-08-13 05:15 | NUR ---
SHIFT SUMMARY PT DID WELL THIS SHIFT. CONTINUES TO BE INTUBATED. SBT/WEAN AND SEDATION VACATION GOING WELL. PT ON PS 10/5, SATS 92%. LUNG SOUNDS CLEAR. LEVO ON STANDBY WELL PROPOFOL. CENTRAL LINE AND ART LINE TO RIGHT FEM, SITE WNL. NS INF @ 10ML/HR. ABD SOFT BUT SEVERLY DISTENDED. PERC DRAIN TO RIGHT ABD CONTUES TO DRAIN BROWNISH FLUID. PT HAS TEMP MENDOZA DRAINING YELLOW URINE. TUBE FEEDS CONTINUE THROUGH OG AT 20ML/HR, PT TOLERATING WITH MINIMAL RESIDUALS. BILATERAL SOFT WRIST RESTRAINTS SECURE. WILL REPORT TO ONCOMING SHIFT.
[2020-08-13 05:34] LABS: PCO2 Arterial 33.6 mmHg (35-45); PO2 Arterial 60.2 mmHg (80-100); pH Blood Arterial 7.48 (7.35-7.45)
--- NOTE | 2020-08-13 07:20 | NUR ---
ASSUMED CARE: REPORT RECEIVED FROM JOSE ANTONIO Smith RN. ASSUMED CARE OF THIS PT AT APPROX 0700. ON ASSESSMENT, THE PT IS RESTING QUIETLY. SHE IS INTUBATED W/ A 7.5 ETT, NOTED TO BE 22.0 CM VERONICA. SEDATION VIA PROPOFOL HAS BEEN ON STANDBY SINCE APPROX 0425, PER REPORT. THE PT AWAKENS EASILY TO VERBAL STIMULUS, SHE IS FOLLOWING DIRECTIONS & ANSWERING YES/NO QUESTIONS BY NODDING HER HEAD. LS DIM IN BASES, FINE CRACKLES NOTED TO LLL. VENT SETTINGS: SPONT W/ PS 10, PEEP 5 & FIO2 35%, O2 SATS > 92%. MONITOR SHOWS AFIB/FLUTTER W/ HR 60s, BP STABLE W/ LEVOPHED OFF SINCE APPROX 05, PER REPORT. OGT IN PLACE W/ TUBE FEEDS INFUSING AT GOAL RATE OF 20 ML/HR, PT TOLERATING WELL W/ LOW RESIDUALS. PERCUTANEOUS DRAIN IN PLACE TO RUQ, DRAINING BROWN-ORANGE LIQUID. TEMP MENDOZA PATENT/ DRAINING DARK YELLOW URINE, OUTPUT CONTINUES IMPROVING. SKIN CONDITION OVERALL INTACT, FRAGILE. Q2H REPOSITIONING TO MAINTAIN SKIN INTEGRITY. WILL CONTINUE TO MONITOR & UPDATE NEEDED.
--- NOTE | 2020-08-13 10:00 | NUR ---
DR VENTURA / DR PERKINS: PROVIDERS AT BEDSIDE THIS AM TO EVAL PT. THIS RN HAS REQUESTED CLARIFICATION REGARDING CALCIUM GLUCONATE ORDERS BEING PLACED, TOTALING 4G FOR THIS AM. DR VENTURA HAS CLARIFIED THAT THE PT SHOULD ONLY RECEIVE 2G CALCIUM GLUCONATE REPLETION TOTAL. PHARMACY HAS BEEN UPDATED & ORDERS CORRECTED. ORDERS ALSO PLACED FOR ABX CHANGE & STEROID DOSE/ FREQUENCY DECREASE R/T PT's ELEVATED WBC. NO OTHER CHANGES AT THIS TIME.
--- NOTE | 2020-08-13 12:09 | NUR ---
DR CARRIZALES: PROVIDER AT BEDSIDE TO EVAL PT THIS AM. SHE HAS DONE WELL ON W/ VENT ON SPONT, PS 10, PEEP 5 & FIO2 35% SINCE APPROX [address] CARRIZALES WOULD LIKE TO EXTUBATE THIS PT TODAY IF SHE CONTINUES TO DO WELL, BUT WOULD LIKE TO CLARIFY PT's CODE STATUS W/ THE FAMILY TO DETERMINE IF REINTUBATION WOULD BE AN OPTION ONCE PT IS EXTUBATED. PROVIDER WILL CALL VINCENT, THE PT's GRANDSON, TO FIND CLARIFICATON REGARDING PT's WISHES/ CODE STATUS & PROVIDE AN UPDATE WELL, PER FAMILY REQUEST.
--- NOTE | 2020-08-13 14:13 | NUR ---
DR CARRIZALES / EXTUBATION: PROVIDER HAS SPOKEN W/ PT's GRANDSON REGARDING CODE STATUS & GENERAL UPDATE. THE PT's CODE STATUS SHOULD BE LIMITED, W/ NO COMPRESSIONS - IF THE PT HAS A PULSE, THEN SHOCK, MEDS & INTUBATION ARE ALL ALLOWABLE, PER VINCENT, PT's GRANDSON. ORDER HAS BEEN UPDATED. DR CARRIZALES HAS REQUESTED THAT A C-DIFF BE OBTAINED FOR THIS PT R/T INCREASING WBC & PERSISTANT DIARRHEA. ORDERS PLACED & SPECIMEN SENT. PT IS TO BE EXTUBATED W/ BIPAP AT BEDSIDE. SYMONE Tavarez, RT, HAS BEEN MADE AWARE OF THIS PLAN. SYMONE Tavarez, RT, AT BEDSIDE W/ BIPAP FOR EXTUBATION. TUBE FEED ON STANDBY SINCE EXTUBATION ORDERED. PT EXTUBATED AT 1352, BILAT SOFT WRIST RESTRAINTS REMOVED AT THAT TIME. 4L NC PLACED W/ O2 SATS > 92%. PT's IN UNIT TO SEE PT AT APPROX 1400. HE IS ALLOWED TO VISIT W/ HER FOR A BRIEF PERIOD OF TIME PRIOR TO BIPAP PLACEMENT AT 1415. SHE IS TOLERATING BIPAP WELL W/ SETTIGNS: 12/5 & 40% FIO2, O2 SATS > 95%.
--- NOTE | 2020-08-13 17:40 | NUR ---
SHIFT SUMMARY: NO ACUTE CHANGES SINCE PRIOR UPDATES. PT REMAINS CALM & COOPERATIVE W/ CARE. SHE IS SOMEWHAT DROWSY BUT AWAKENS EASILY TO VERBAL STIMULUS & IS ALERT/OREINTED AT THAT TIME. LS DIM IN BASES, PT ON BIPAP W/ SETTINGS: 12/5 & 40% FIO2, O2 SATS > 95%. MONITOR SHOWS AFIB W/ HR 60s, BP STABLE. OGT REMOVED AT TIME OF EXTUBATION, WILL COMPLETE BEDSIDE SWALLOW EVAL WHEN PT MORE ALERT. PERCUTANEOUS DRAIN TO RUQ CONTINUES DRAINING BROWN-ORANGE LIQUID. TEMP MENDOZA PATENT/ DRAINING YELLOW URINE. SKIN CONDITION OVERALL UNCHANGED, Q2H REPOSITIONING TO MAINTAIN SKIN INTEGRITY. WILL CONTINUE TO MONITOR & REPORT OFF TO ONCOMING RN.
--- NOTE | 2020-08-13 19:00 | NUR ---
ASSUMED CARE ASSUMED CARE OF PATIENT. AWAKE AND ALERT. FOLLOWS SIMPLE COMMANDS AND MOVES ALL EXTREMITIES WEAKLY. NO VERBAL RESPONSE AT THIS TIME, BUT PT DOES NOD HEAD YES/NO APPROPRIATELY. DENIES C/O PAIN AT THIS TIME. 4L NC AT THIS TIME. RESPIRATIONS EVEN AND UNLABORED, BUT OCCASIONALLY TACHYPNEIC WITH EXERTION. MONITOR SHOWS AFIB/FLUTTER, RATE 70s. BP STABLE. RIGHT FEMORAL ARTERIAL LINE PATENT. NPO D/T FAILED SWALLOW EVAL. RIGHT ABDOMEN CHOLECYSTOSTOMY TUBE INTACT, DRAINING LIQUID BROWN DRAINAGE. MENDOZA PATENT AND DRAINING TO GRAVITY. SEE SHIFT ASSESSMENT FOR FULL ASSESSMENT. =
[2020-08-14 04:10] LABS: Hematocrit 31.1 % (33.0-51.0); Hemoglobin 9.8 g/dL (11.5-16.0); LYMPHOCYTES ABSOLUTE AUTO 1.62 K/mm3 (0.84-5.20); LYMPHOCYTES PERCENT AUTO 4 % (21-46); Mean Corpuscular HGB 27.8 pg (26.0-34.0); Mean Corpuscular HGB Conc 31.5 g/dL (31.5-36.5); Mean Corpuscular Volume 88 fL (80-100); NRBC ABSOLUTE 0.16 K/mm3 (0.00-0.02); NRBC Auto 0.4 /100 WBC (0.0-0.2); Platelet Count 98 K/mm3 (150-400); RDW Coefficient Variation 17.6 % (11.7-14.2); RDW Standard Deviation 57.2 fL (35.1-46.3); Red Blood Cell Count 3.53 M/mm3 (3.80-5.20); White Blood Cell Count 37.87 K/mm3 (4.00-11.30)
[2020-08-14 04:17] LABS: BASOPHILS ABSOLUTE AUTO 0.03 K/mm3 (0.00-0.23); BASOPHILS PERCENT AUTO 0 % (0-2); EOSINOPHILS PERCENT AUTO 0 % (0-6); IMMATURE GRAN ABSOLUTE AUTO 1.69 K/mm3 (0.00-0.10); IMMATURE GRAN PERCENT AUTO 5 % (0-1); MONOCYTES ABSOLUTE AUTO 3.84 K/mm3 (0.16-1.47); MONOCYTES PERCENT AUTO 10 % (4-13); Mean Platelet Volume 13.4 fL (9.1-12.4); NEUTROPHILS ABSOLUTE AUTO 30.69 K/mm3 (1.96-9.15); NEUTROPHILS PERCENT AUTO 81 % (41-73)
[2020-08-14 04:27] LABS: Bun/Creatinine Ratio 30.9 (12.0-20.0); Creatinine, Blood 1.62 mg/dL (0.40-1.00); Magnesium, Blood 2.6 mg/dL (1.6-2.4); Phosphorus, Blood 3.4 mg/dL (2.5-4.9); Potassium, Blood 2.8 mmol/L (3.5-5.5)
[2020-08-14 04:34] LABS: BAND PERCENT MAN 3 % (0-8); BASOPHILS PERCENT MAN 0 % (0-2); EOSINOPHILS PERCENT MAN 0 % (0-6); LYMPHOCYTES ABSOLUTE MAN 0.37 K/mm3 (0.84-5.20); LYMPHOCYTES PERCENT MAN 1 % (21-46); METAMYELOCYTE ABSOLUTE MAN 0.37 K/mm3 (0.00-0.00); METAMYELOCYTE PERCENT MAN 1 % (0-0); MONOCYTES ABSOLUTE MAN 1.89 K/mm3 (0.16-1.47); MONOCYTES PERCENT MAN 5 % (4-13); NEUTROPHILS ABSOLUTE MAN 35.21 K/mm3 (1.96-9.15); SEG NEUTROPHILS PERCENT MAN 90 % (41-73); TOTAL CELLS COUNTED 100
--- NOTE | 2020-08-14 06:14 | NUR ---
SHIFT SUMMARY NO ACUTE CHANGES. SLEPT INTERMITTENTLY. ROUSES EASILY TO STIMULI. CONTINUES TO NOD HEAD YES/NO APPROPRIATELY, BUT STILL NO VERBAL RESPONSE. MOVES ALL EXTREMITIES WEAKLY. REMAINED IN AFIB/FLUTTER T/O SHIFT, RATE 60s-70s. SBP 140s-180s. AFEBRILE. ON BIPAP T/O NOC WITH SMALL BREAKS ON 4L NC FOR ORAL CARE. NPO D/T FAILING BEDSIDE SWALLOW EVAL. FLEXISEAL IN PLACE- LIQUID STOOL. MENDOZA PATENT AND DRAINING YELLOW URINE. RIGTH FEMORAL CENTRAL LINE AND ARTERIAL LINE PATENT. MEDICATED WITH FENTANYL 25MCG IV X 1 FOR COMFORT. WILL REPORT TO ONCOMING RN WHEN AVAILABLE.
[2020-08-14 06:33] LABS: C DIFFICILE DNA Negative (Negative)
--- NOTE | 2020-08-14 08:45 | NUR ---
ASSUMED CARE / DR CARRIZALES: REPORT RECEIVED FROM DEEP Edgar RN. ASSUMED CARE OF THIS PT AT APPROX 0700. ON ASSESSMENT, THE PT IS AWAKE, ALERT & ORIENTED TO SELF & FOLLOWING DIRECTIONS. SHE IS NOT SPEAKING BUT IS VERBAL AT BASELINE, PER REPORT FROM FAMILY. LS CLEAR T/O, PT ON BIPAP W/ SETTINGS: 8/5 & 35%, O2 SATS > 95%. MONITOR SHOWS AFIB W/ HR 80s, BP STABLE. PT NPO R/T FAILED BEDSIDE SWALLOW EVAL LAST NIGHT. TEMP MENDOZA PATENT/ DRAINING DARK YELLOW URINE. SKIN CONDITION OVERALL FRAGILE, INTACT. Q2H REPOSITIONING TO MAINTAIN SKIN INTEGRITY. DR CARRIZALES AT BEDSIDE THIS AM TO EVAL PT. CURRENT ORDERS FOR ELECTROLYTE REPLETION CLARIFIED MULTIPLE PROVIDERS ARE PLACING ORDERS. CBG CHECKS D/C'd PT HAS REQUIRED NO INSULIN COVERAGE SINCE ADMIT. ART LINE TO BE D/C'd THIS SHIFT. PT/OT/ST ORDERED, HE WOULD LIKE THE PT OOB TO CHAIR TODAY. PT IS C-DIFF NEGATIVE & ORAL VANCO D/C'd. WILL CONTINUE TO MONITOR & UPDATE NEEDED.
[2020-08-14 16:59] LABS: International Normalized Ratio 1.12; Prothrombin Time Results 11.9 Sec (9.7-11.5)
--- NOTE | 2020-08-14 18:39 | NUR ---
SHIFT SUMMARY: NO ACUTE CHANGES SINCE PRIOR UPDATES. PT REMAINS A&O, PLEASANT & COOPERATIVE. SHE HAS BEGUN TO VERBALIZE A SMALL AMNT THIS AFTERNOON & IS OTHERWISE ABLE TO MAKE NEEDS KNOWN BY NODDING HEAD YES/NO. LS ARE CLEAR, DIM IN BASES. PT HAS BEEN ON 2L NC W/ O2 SATS > 92% FOR MOST OF THIS SHIFT. MONITOR SHOWS AFIB W/ HR 80s, BP STABLE. PT REMAINS NPO R/T SPEECH EVAL THIS AM. PERCUTANEOUS DRAIN IN PLACE TO RUQ HAS HAD DRAINAGE BAG REPLACED THIS AFTERNOON FOR CONTINUED LEAKING FROM DRAINAGE PORT DESPITE TIGHTENING. BROWN-ORANGE LIQUID DRAINAGE NOTED. TEMP MENDOZA PATENT/ DRAINING YELLOW URINE - SEE I&O. SKIN CONDITION OVERALL FRAGILE, INTACT. WILL CONTINUE TO MONITOR & REPORT OFF TO ONCOMING RN.
--- NOTE | 2020-08-14 19:00 | NUR ---
ASSUMED CARE ASSUMED CARE OF PATIENT. AWAKE AND ALERT. ORIENTED TO SELF. FOLLOWS SIMPLE COMMANDS AND NODS HEAD YES/NO APPROPRIATELY. NO VERBAL RESPONSE NOTED. MOVES ALL EXTREMITIES WEAKLY. MONITOR SHOWS AFIB/FLUTTER, RATE 70s. BP 160-170s. AFEBRILE. O2 2L NC- SATS STABLE. RESPIRATIONS TACHYPNEIC AT TIMES. PT DENIES SOB. ABD DISTENDED, FIRM, AND TENDER. NPO D/T ASPIRATION RISK. MENDOZA PATENT AND DRAINING. RIGHT FEMORAL A-LINE AND CENTRAL LINE PATENT, DRSG D/I. SANJAY POWER GLIDE NOTED. SEE SHIFT ASSESSMENT FOR FULL ASSESSMENT.
[2020-08-15 04:24] LABS: Hematocrit 33.7 % (33.0-51.0); Hemoglobin 10.5 g/dL (11.5-16.0); Mean Corpuscular HGB 28.2 pg (26.0-34.0); Mean Corpuscular HGB Conc 31.2 g/dL (31.5-36.5); Mean Corpuscular Volume 90 fL (80-100); Mean Platelet Volume 11.4 fL (9.1-12.4); NRBC ABSOLUTE 0.22 K/mm3 (0.00-0.02); NRBC Auto 0.6 /100 WBC (0.0-0.2); Platelet Count 121 K/mm3 (150-400); RDW Standard Deviation 59.7 fL (35.1-46.3); Red Blood Cell Count 3.73 M/mm3 (3.80-5.20); White Blood Cell Count 38.21 K/mm3 (4.00-11.30)
[2020-08-15 04:44] LABS: Albumin, Blood 2.1 g/dL (3.4-5.0); Albumin/Globulin Ratio 0.5 (0.8-1.8); Bilirubin, Total 2.1 mg/dL (0.1-1.0); Bun/Creatinine Ratio 34.5 (12.0-20.0); Calcium, Blood 8.7 mg/dL (8.5-10.1); Creatinine, Blood 1.16 mg/dL (0.40-1.00); Globulin, Blood 4.1 g/dL (2.2-4.0); Magnesium, Blood 2.4 mg/dL (1.6-2.4); Phosphorus, Blood 2.5 mg/dL (2.5-4.9); Potassium, Blood 3.2 mmol/L (3.5-5.5); Total Protein, Blood 6.2 g/dL (6.4-8.2)
[2020-08-15 04:46] LABS: BAND PERCENT MAN 6 % (0-8); BASOPHILS PERCENT MAN 0 % (0-2); EOSINOPHILS PERCENT MAN 0 % (0-6); LYMPHOCYTES ABSOLUTE MAN 3.05 K/mm3 (0.84-5.20); LYMPHOCYTES PERCENT MAN 8 % (21-46); MONOCYTES ABSOLUTE MAN 2.67 K/mm3 (0.16-1.47); MONOCYTES PERCENT MAN 7 % (4-13); MYELOCYTE ABSOLUTE MAN 0.38 K/mm3 (0.00-0.00); MYELOCYTE PERCENT MAN 1 % (0-0); NEUTROPHILS ABSOLUTE MAN 32.09 K/mm3 (1.96-9.15); SEG NEUTROPHILS PERCENT MAN 78 % (41-73); TOTAL CELLS COUNTED 100
--- NOTE | 2020-08-15 05:46 | NUR ---
CALL TO PT STARTED TO ATTEMPT TO TALK THIS AM, BUT SPEECH IS GARBLED AND INCOMPREHENSIBLE. PT WAS ABLE TO SAY "I WANT WATER" ONCE, BUT OTHERWISE IS DIFFICULT TO UNDERSTAND. ANESTHESIA TECHNICIAN ARE EQUAL BILATERALLY. CONTINUES TO NOD HEAD YES/NO APPROPRIATELY. TEARFUL AT TIMES. DR. CARRIZALES NOTIFIED OF ABNORMAL LABS AND OF THE FACT THAT THE PATIENT IS UNABLE TO FORM COHERENT WORDS.
--- NOTE | 2020-08-15 05:53 | NUR ---
SHIFT SUMMARY NO ACUTE CHANGES. SLEPT INTERMITTENTLY. ROUSES EASILY. PT WAS NON-VERBAL AT THE BEGINNING OF THE SHIFT, BUT IS NOW ATTEMPTING TO TALK. SPEECH IS INCOMPREHENSIBLE. CONTINUES TO NOD HEAD YES/NO APPROPRIATELY. MOVES ALL EXTREMITIES WEAKLY. TEARFUL AT TIMES. PT IS ABLE TO COMMUNICATE THAT SHE IS THIRSTY- NPO STATUS EXPLAINED TO HER. FREQUENT ORAL CARE PROVIDED. REMAINED IN FIB/FLUTTER, RATE 70s-90s. BP STABLE. NPO D/T ASPIRATION RISK. ABD REMAINS DISTENDED AND FIRM. TENDER WITH PALPATION. MEDICATED WITH FENTANYL 25MCG IV X 3 DOSES FOR C/O ABD/BACK PAIN. MENDOZA PATENT AND DRAINING TO GRAVITY. RIGHT ABDOMEN DRAIN INTACT AND DRAINING BROWN DRAINAGE. WILL REPORT TO ONCOMING RN WHEN AVAILABLE.
--- NOTE | 2020-08-15 11:13 | NUR ---
Assumed care of pt at 0700. Bedside report received from Sarah GARCIA. Pt does not speak, but nods head appropriately to yes/no questions and appears receptive to education provided. Pt is very weak and decondiioned but follows directions to the best of her ability. Pt on 2 LPM NC. SpO2 90% or greater with 2 LPM NC. Atrial fibrillation/atrial flutter per monitor, with controlled rate. Hypertensive. Per offgoing RN, Dr Miranda aware. [facility] [place] clarified with provider. Pt again failed speech eval. Plan to place dobhoff feeding tube. Rectal tube in place draining liquid brown stool. Cholecystostomy to RUQ with bilious drainage. Escudero catheter patent and draining clear, yellow urine.
[2020-08-15 12:13] LABS: Bun/Creatinine Ratio 32.7 (12.0-20.0); Calcium, Blood 8.4 mg/dL (8.5-10.1); Creatinine, Blood 1.01 mg/dL (0.40-1.00); Potassium, Blood 3.5 mmol/L (3.5-5.5)
--- NOTE | 2020-08-15 12:33 | NUR ---
[address] notified to Dr Miranda. Dohboff tube placed. Placement verified by radiologist. Awaiting orders from hot mill supervisor. Orders received from Dr Miranda for free water flush. Plan for patient to transfer to room 219. Telephone report given to Rick GARCIA.
--- NOTE | 2020-08-15 12:55 | NUR ---
TRANSFER TO SURGICAL FLOOR. PT TRANSFERED TO ROOM 219. PT TRANSFERED TO BED WITH MULT ASSIST. THIS RN BEEN GIVEN REPORT AND UPDATED REPORT AFTER HOUSE NURSE PLACED DOBHOFF. HOUSE NURSE REPORTS PLACEMENT BEEN VERIFIED BY RADIOLOGY. PT HAS DOBHOFF IN PLACE THAT IS NOT INFUSING AT THIS TIME. PT HAS RECTAL TUBE IN PLACE. MENDOZA IN PLACE. POWER-GLIDE TO RIGHT UPPER ARM. PT HAS DRAIN TO RIGHT ABD. PT ABLE TO ANSWER YES/NO QUESTIONS BY SHAKING YES/NO. PT WAS TRANSFERED WITH MULT ASSIST TO BED, BED ALARM ON. PT TOLERATED TRANSFER TO BED WELL. PT REPOSITIONED. BEDSIDE REPORT BY ICU GIVEN. PT ASSISTED WITH ADL'S PRN. PT DENIES ANY OTHER NEEDS. CALL LIGHT IN REACH, FREQUENT ROUNDING.
--- NOTE | 2020-08-15 13:32 | NUR ---
PT RECENTLY ON TELE IN ROOM 219. CONFIRMED PT ON TELE IN ROOM 219, PT AFIB IN THE 60'S PER TELE.
--- NOTE | 2020-08-15 15:17 | NUR ---
PT FAMILY REPORTS PT IN PAIN. DISCUSSED WITH DR VENTURA, REPORTED MAY GIVE EXTRA DOSE NOW, SEE ORDER. DISCUSSED WITH PHARMACY.
--- NOTE | 2020-08-15 15:46 | NUR ---
DR VENTURA HERE TO SEE PT/FAMILY.
--- NOTE | 2020-08-15 18:12 | NUR ---
SHIFT SUMMARY PT WAS ICU TRANSFER THIS AFTERNOON. PT BEEN CHECKED ON VERY FREQUETLY SHE DOES NOT USE CALL LIGHT AND IS NOT ABLE TO SPEAK MUCH AT ALL. PT ANSWERS YES/NO QUESTIONS BY SHAKING HEAD YES/NO MOST OF TIME ALTHOUGH PT REPORTED PT STATING SMALL SENTENCE EARLIER TODAY. PT FAMILY REQ DR TO COME SEE THEM, WHICH SHE DID AND DISCUSSED PT'S STATUS CARE WITH PT/FAMILY. FAMILY REPORTED THAT DR VENTURA TALKED TO THERE PER HIS REQ ON PHONE. PT BEEN REPOSITIONED MULT TIMES. PT CONT TO HAVE RECTAL TUBE, MENDOZA, ABD DRAIN IN PLACE. PT HAS DOBHOFF IN PLACE, WAITING FOR JEVITY TO START TUBE FEEDINGS. IVF INFUSING WITHOUT DIFFICULTY. NOTIFICATION FOR NEED FOR JEVITY SENT. BED ALARM IN PLACE, FREQUENT ROUNDING. PT BEEN ASSISTED WITH ADL'S PRN, MED PRN FOR PAIN.
--- NOTE | 2020-08-15 18:37 | NUR ---
PT REPORTED FEELING NAUSEA, NO ORDERS FOR NAUSEA MEDICATIONS ON EMAR. DR VENTURA NOTIFIED, DISCUSSED PT'S NAUSEA AND THAT TUBE FEEDINGS HAVE NOT BEEN STARTED YET JEVITY NOT SENT YET. WAS REPORTED EARLIER THAT IT SHOULD BE ON DINNER TRAY ALTHOUGH WAS NOT SEEN, SO REQUEST FOR JEVITY WAS SENT.
--- NOTE | 2020-08-15 20:12 | NUR ---
DOBHOFF TUBE FEEDING STARTED AT 1950. PUMP SET TO 25ML OF FEED/HR WITH 80CC WATER FLUSH Q4 PER ORDERS.
--- NOTE | 2020-08-16 00:30 | NUR ---
PT NOTED TO HAVE INCREASED RESP RATE OF 40, LS COARSE NON PROD MOIST COUGH. CALLED DR. BARLOW, NEW ORDER FOR BD PROTOCAL EVAL AND TREAT.
--- NOTE | 2020-08-16 01:25 | NUR ---
PT HAD 7 BEAT RUN V-TACH, PT DENIES CHEST PAIN, BP HR STABLE AT THIS TIME. MORNING LABS DRAWN AT THIS TIME AND CALLED DR. BARLOW, NO FURTHER ORDERS.
--- NOTE | 2020-08-16 01:35 | NUR ---
RT IN ROOM DEEP SUCTIONING. LARGE AMOUNT OF THICK YELLOW MUCOUS OUT. LUNGS NOW CLEAR AND DIMINISHED THROUGHOUT. O2 93% ON 3.5L VIA NC. RR OF 44.
[2020-08-16 02:01] LABS: Anion Gap 5 mmol/L (6-16); Blood Urea Nitrogen 25 mg/dL (8-24); Bun/Creatinine Ratio 27.7 (12.0-20.0); CO2, Blood 30 mmol/L (21-32); Calcium, Blood 8.3 mg/dL (8.5-10.1); Chloride, Blood 112 mmol/L (98-108); Glomerular Filtration Rate >60 (60-); Glucose, Blood 101 mg/dL (70-99); Phosphorus, Blood 1.8 mg/dL (2.5-4.9); Potassium, Blood 3.3 mmol/L (3.5-5.5); Sodium, Blood 147 mmol/L (136-145)
[2020-08-16 02:09] LABS: Hematocrit 35.1 % (33.0-51.0); Hemoglobin 10.8 g/dL (11.5-16.0); Mean Corpuscular HGB 28.1 pg (26.0-34.0); Mean Corpuscular HGB Conc 30.8 g/dL (31.5-36.5); Mean Corpuscular Volume 91 fL (80-100); Mean Platelet Volume 12.1 fL (9.1-12.4); NRBC ABSOLUTE 0.16 K/mm3 (0.00-0.02); NRBC Auto 0.5 /100 WBC (0.0-0.2); Platelet Count 124 K/mm3 (150-400); RDW Coefficient Variation 18.8 % (11.7-14.2); RDW Standard Deviation 60.1 fL (35.1-46.3); Red Blood Cell Count 3.84 M/mm3 (3.80-5.20); White Blood Cell Count 33.47 K/mm3 (4.00-11.30)
[2020-08-16 02:30] LABS: BAND PERCENT MAN 6 % (0-8); BASOPHILS PERCENT MAN 0 % (0-2); EOSINOPHILS PERCENT MAN 0 % (0-6); LYMPHOCYTES PERCENT MAN 6 % (21-46); METAMYELOCYTE ABSOLUTE MAN 0.33 K/mm3 (0.00-0.00); METAMYELOCYTE PERCENT MAN 1 % (0-0); MONOCYTES ABSOLUTE MAN 2.34 K/mm3 (0.16-1.47); MONOCYTES PERCENT MAN 7 % (4-13); NEUTROPHILS ABSOLUTE MAN 28.78 K/mm3 (1.96-9.15); SEG NEUTROPHILS PERCENT MAN 80 % (41-73); TOTAL CELLS COUNTED 100
--- NOTE | 2020-08-16 04:03 | NUR ---
CONTINUOUS FEED INCREASED TO 35ML/HR AT THIS TIME
--- NOTE | 2020-08-16 10:01 | NUR ---
INCREASED FEED RATE TO 45ML/HR. GOAL RATE IS 50ML/HR. SPEECH THERAPY TO COME AND WORK WITH PATIENT. PALLIATIVE CARE AND CARE MANAGEMENT REQUESTED FOR CONVERSATIONS RELATED TO GOALS, FUTURE PLANNING AND POTENTIAL CHANGE IN CARE NEEDS. PATIENT IS VERBAL TODAY. SHE WAS ABLE TO VERBALIZE NAME, DATE, LOCATION AND "I WANT TO GET OUT OF BED." WILL CONT TO MONITOR
--- NOTE | 2020-08-16 12:32 | NUR ---
DISCHARGE HOME PATIENT TO DC HOME PER . SHE STATES SHE IS AGREEABLE TO THE PLAN AND HER IS ON HIS WAY. IV REMOVED, INTACT. DISHCARGE ORDERS COMPLETED AND REVIEWED WITH PATIENT. SHE VERBALIZED UNDERSTANDING. ESCORTED OUT BY THIS RN VIA WHEEL CHAIR INTO CAR DRIVEN BY . PATIENT STABLE AT TIME OF DISCHARGE.
--- NOTE | 2020-08-16 17:23 | NUR ---
SHIFT SUMMARY NO ACUTE CHANGES THIS SHIFT. PATIENT WORKED WITH PT/OT/ST TODAY. SHE WAS ABLE TO PARTICIPATE. PATIENT CONT TO BE VERBAL WITH NEEDS, DOES NOT USE CALL LIGHT. PER SPEECH, HER INCREASED RESPIRATORY RATE CONT TO INHIBIT AIRWAY SAFETY AND SHE IS TO REMAIN NPO AT THIS TIME. TUBE FEEDS RUNNING AT GOAL RATE OF 50ML/HR. PATIENT TOLERATING WELL. SHE IS ALERT AND COOPERATIVE WITH CARE. RECATAL TUBE REMOVED PER TELEPHONE ORDER FROM . MEDICATED FOR PAIN PER EMAR X3. BED LOW AND LOCKED, CALL LIGHT WITHIN REACH, BED ALARM SET. WILL CONT TO MONITOR AND REPORT TO NOC RN.
--- NOTE | 2020-08-17 01:23 | NUR ---
AT APPROX. 2230 ON 08/16/20 PATIENT PULLED OUT DOBHOFF FROM NOSE. HOSPITALIST NOTIFIED. WILL WAIT FOR POSSIBLE REPLACEMENT OF TUBING IN THE AM. PATIENT HAS CALL LIGHT WITHIN REACH AND HAS BED ALARM ON.
--- NOTE | 2020-08-17 05:11 | NUR ---
SHIFT SUMMARY: NO ACUTE CHANGES THIS SHIFT. PATIENT HAS BEEN ASLEEP MAJORITY OF THE SHIFT. SHE IS NONVERBAL AND WILL NOD HER HEAD YES OR NO TO QUESTIONS. SHE HAS REMAINED NPO SINCE SHE FAILED HER SWALLOW EVAL WITH SPEECH THERAPY YESTERDAY. PATIENT DENIED PAIN THROUGHOUT SHIFT. MENDOZA IS PATENT AND DRAINING BY GRAVITY INTO THE MENDOZA BAG. BED IS LOCKED AND IN LOWEST POSITION. SHE IS COOPERATIVE WITH CARE. ACCORDING TO TELE CAKE PRESS OPERATOR SHE HAS BEEN IN AFIB AT 92 BPM. SHE IS A TWO PERSON TURN IN BED WITH CHANGES. CALL LIGHT WITHIN REACH. THE PLAN IS TO HAVE PALLIATIVE CARE AND PICKER MACHINE OPERATOR INVOLVED.
[2020-08-17 05:36] LABS: BASOPHILS PERCENT AUTO 0 % (0-2); EOSINOPHILS ABSOLUTE AUTO 0.02 K/mm3 (0.00-0.68); EOSINOPHILS PERCENT AUTO 0 % (0-6); Hematocrit 32.9 % (33.0-51.0); Hemoglobin 10.1 g/dL (11.5-16.0); IMMATURE GRAN ABSOLUTE AUTO 1.36 K/mm3 (0.00-0.10); IMMATURE GRAN PERCENT AUTO 4 % (0-1); LYMPHOCYTES ABSOLUTE AUTO 1.32 K/mm3 (0.84-5.20); LYMPHOCYTES PERCENT AUTO 4 % (21-46); MONOCYTES ABSOLUTE AUTO 1.22 K/mm3 (0.16-1.47); MONOCYTES PERCENT AUTO 4 % (4-13); Mean Corpuscular HGB 28.1 pg (26.0-34.0); Mean Corpuscular HGB Conc 30.7 g/dL (31.5-36.5); Mean Corpuscular Volume 92 fL (80-100); Mean Platelet Volume 12.5 fL (9.1-12.4); NEUTROPHILS ABSOLUTE AUTO 28.02 K/mm3 (1.96-9.15); NEUTROPHILS PERCENT AUTO 88 % (41-73); NRBC ABSOLUTE 0.03 K/mm3 (0.00-0.02); NRBC Auto 0.1 /100 WBC (0.0-0.2); Platelet Count 122 K/mm3 (150-400); RDW Coefficient Variation 18.8 % (11.7-14.2); RDW Standard Deviation 62.7 fL (35.1-46.3); Red Blood Cell Count 3.59 M/mm3 (3.80-5.20); White Blood Cell Count 32.04 K/mm3 (4.00-11.30)
[2020-08-17 06:25] LABS: Anion Gap 7 mmol/L (6-16); Blood Urea Nitrogen 16 mg/dL (8-24); Bun/Creatinine Ratio 21.9 (12.0-20.0); CO2, Blood 26 mmol/L (21-32); Calcium, Blood 7.6 mg/dL (8.5-10.1); Chloride, Blood 112 mmol/L (98-108); Creatinine, Blood 0.73 mg/dL (0.40-1.00); Glomerular Filtration Rate >60 (60-); Glucose, Blood 100 mg/dL (70-99); Magnesium, Blood 1.9 mg/dL (1.6-2.4); Phosphorus, Blood 2.5 mg/dL (2.5-4.9); Potassium, Blood 4.5 mmol/L (3.5-5.5); Sodium, Blood 145 mmol/L (136-145)
--- NOTE | 2020-08-17 19:40 | NUR ---
SHIFT SUMMARY PT HAS HAD AN ELEVATED RR T/O THE DAY, DR. ESPINOSA NOTIFIED. PT DECLINED THERAPY TODAY. SHE HAS BEEN ASSISTED WITH FREQUENT REPOSITIONING, SHE CAN ASSIST WITH MOVEMENT WHEN ENCOURAGED. MENDOZA CATH IN PLACE, FLUIDS STARTED R/T DARK CONCENTRATED URINE. PLAN TO ENCOURAGE PULMONARY HYGIENE. REPORT GIVEN TO PAMELLA GARCIA.
[2020-08-18 04:40] LABS: BASOPHILS ABSOLUTE AUTO 0.09 K/mm3 (0.00-0.23); BASOPHILS PERCENT AUTO 0 % (0-2); EOSINOPHILS ABSOLUTE AUTO 0.07 K/mm3 (0.00-0.68); EOSINOPHILS PERCENT AUTO 0 % (0-6); Hematocrit 36.5 % (33.0-51.0); Hemoglobin 10.8 g/dL (11.5-16.0); IMMATURE GRAN ABSOLUTE AUTO 0.53 K/mm3 (0.00-0.10); IMMATURE GRAN PERCENT AUTO 2 % (0-1); LYMPHOCYTES ABSOLUTE AUTO 0.92 K/mm3 (0.84-5.20); LYMPHOCYTES PERCENT AUTO 3 % (21-46); MONOCYTES ABSOLUTE AUTO 0.78 K/mm3 (0.16-1.47); MONOCYTES PERCENT AUTO 3 % (4-13); Mean Corpuscular HGB 27.7 pg (26.0-34.0); Mean Corpuscular HGB Conc 29.6 g/dL (31.5-36.5); Mean Corpuscular Volume 94 fL (80-100); Mean Platelet Volume 12.6 fL (9.1-12.4); NEUTROPHILS ABSOLUTE AUTO 25.22 K/mm3 (1.96-9.15); NEUTROPHILS PERCENT AUTO 91 % (41-73); Platelet Count 127 K/mm3 (150-400); RDW Coefficient Variation 18.8 % (11.7-14.2); RDW Standard Deviation 64.2 fL (35.1-46.3); White Blood Cell Count 27.61 K/mm3 (4.00-11.30)
[2020-08-18 04:54] LABS: Anion Gap 6 mmol/L (6-16); Blood Urea Nitrogen 17 mg/dL (8-24); Bun/Creatinine Ratio 21.5 (12.0-20.0); CO2, Blood 28 mmol/L (21-32); Calcium, Blood 8.1 mg/dL (8.5-10.1); Chloride, Blood 110 mmol/L (98-108); Creatinine, Blood 0.79 mg/dL (0.40-1.00); Glomerular Filtration Rate >60 (60-); Glucose, Blood 98 mg/dL (70-99); Potassium, Blood 3.8 mmol/L (3.5-5.5); Sodium, Blood 144 mmol/L (136-145)
--- NOTE | 2020-08-18 06:20 | NUR ---
SHIFT SUMMARY S/P CHOLECYSTITIS W/ SEPSIS, A/O, DIFFICULT TO COMMUNICATE WITH, MOSTLY NON VERBAL W/ VERY QUIET TONE WHEN PT DOES SPEAK, VSS, TOLERATING DIET/THICKENED LIQUIDS AND MEDS, MENDOZA IN PLACE/DRAINING WELL. NO ACUTE EVENTS THIS SHIFT. CALL LIGHT IN REACH, WILL CONTINUE TO MONITOR AND REPORT TO ONCOMING DAY RN.
--- NOTE | 2020-08-18 13:30 | NUR ---
PT HAS BEEN ENCOURAGED TO DEEP BREATHE, COUGH AND USE FLUTTER VALVE. SHE HAS MOVED SOME SECREATIONS BUT NOT REQUIRED ANY SUCTIONING. PT HAS A WEEK COUGH EFFORT AND HER RESPIRATIONS ARE SHALLOW EVEN WHEN ATTEMPTING TO DEEP BREATHE.
--- NOTE | 2020-08-18 15:54 | NUR ---
PERCUTANEOUS DRAIN REMOVED WITHOUT DIFFICULTY, CATH TIP INTACT W/ SUTURES, PT TOLERATED WELL, STERILE GAUZE APPLIED TO SITE AND MEFIX TAPE.
--- NOTE | 2020-08-18 18:04 | NUR ---
SHIFT SUMMARY PT HAD CT SCAN TODAY TO CHECK PLACEMENT OF GALLBLADDER DRAIN. THE GALLBLADDER DRAIN WAS DISPLACED, DRAIN REMOVED; PLAN FOR CT GUIDED DRAIN PLACEMENT TOMORROW. PT IS TOLERATING SMALL AMOUNTS OF FOOD AND FLUIDS. BP HAS BEEN ELEVATED THIS SHIFT, DR. ESPINOSA NOTIFIED AND BP MEDICATIONS RESTARTED. PT HAS BEEN TOLERATING PUREE DIET AND NECTAR THICK LIQUIDS BY SPOON. WILL CONTINUE TO MONITOR UNTIL REPORT TO NOC JOSE.
[2020-08-19 04:30] LABS: International Normalized Ratio 1.22; Prothrombin Time Results 12.9 Sec (9.7-11.5)
--- NOTE | 2020-08-19 06:38 | NUR ---
SHIFT SUMMARY S/P DRAIN PLACEMENT, DRAIN REMOVED DAY SHIFT 08/18, NPO SINCE MIDNIGHT FOR NEW DRAIN PLACEMENT TODAY, A/O X2-3, VSS STABLE OTHER THAN BP, TRANDATE GIVEN PER ORDER FOR SBP OVER 180, ALL OTHER VITALS WNL, TOLERATING PUREE DIET PRIOR TO NPO STATUS, VOIDING VIA MENDOZA, BM THIS SHIFT, NO ACUTE EVENTS THIS SHIFT. CALL LIGHT IN REACH, WILL CONTINUE TO MONITOR AND REPORT TO ONCOMING DAY RN.
--- NOTE | 2020-08-19 08:24 | NUR ---
DR ESPINOSA RECENTLY TO SEE PT.
--- NOTE | 2020-08-19 08:27 | NUR ---
DR ESPINOSA REPORTS TO HOLD [facility] THIS AM. WILL GIVE METOPROLOL WITH SIP OF WATER.
--- NOTE | 2020-08-19 08:39 | NUR ---
PT MED WITH SIP OF WATER WITH ASP PRECAUTIONS IN PLACE. PT MED WITHOUT DIFFICULTY.
--- NOTE | 2020-08-19 11:23 | NUR ---
RADIOLOGY CALLED AND REPORTED TALKING TO THE "ATTENDING DR" AND REPORTED THAT THE PROCEDURE IS BEING CANCELLED. DR ESPINOSA CONTACTED TO CONFIRM, REPORTS CANCELLING PROCEDURE AND THAT PT MAY HAVE DIET. REPORTS WILL PLACE DIET ORDER. DISCUSSED WITH MARKETING COPYWRITER. PT RESTING QUIETLY, RESP E/U.
--- NOTE | 2020-08-19 14:20 | NUR ---
DR KATE HERE TO SEE PT, FAMILY PRESENT. REQ RN TO ORDER DIET. REPORTS TO GIVE LOVENOX SHOT.
--- NOTE | 2020-08-19 15:15 | NUR ---
DR TIPTON RECENTLY HERE TO SEE PT, FAMILY PRESENT.
--- NOTE | 2020-08-19 17:09 | NUR ---
SHIFT SUMMARY PT TOLERATING DIET WITH ASP PRECAUTIONS IN PLACE. ALEKSANDERT DR TO SEE PT TODAY. PT DID NOT HAVE PROCEDURE TODAY, BOTH DR'S AWARE. PT BEEN ASSISTED WITH ADL'S PRN. PT BEEN REPOSITIONED MULT TIMES TODAY. FAMILY IN TO SEE PT, DR TO SEE PT WHEN FAMILY PRESENT. PT EXT'S BEEN ELEVATED ON PILLOW. PT BED ALARM IN PLACE. PT HAD BM TODAY.
--- NOTE | 2020-08-19 18:12 | NUR ---
INFORMATION REGARDING MRI SCREENING FORM FILLED OUT BY PT'S BEFORE HE LEFT. DR NOTIFIED PER IMAGING THAT MRI WOULD NOT BE PERFORMED UNTIL TOMMORROW WHICH DR REPORTED THAT WAS OK WITH HIM.
--- NOTE | 2020-08-20 04:47 | NUR ---
SHIFT SUMMARY: PT HAS DONE WELL THIS SHIFT. PT ABLE TO VERBALIZE WHEN SHE IS THIRSTY AND WHEN SHE NEEDS TO REPOSTIONED, OTHERWISE SHE IS ANSWERING YES/NO QUESTIONS BY NODDING OR SHAKING HEAD. PT HAS BEEN YESENIA PO WITH ASPIRATION PRECAUTIONS IN PLACE. PT OCC COUGHING. NONPRODUCTIVE. LUNG SOUNDS CLEAR T/O. O2 STABLE ON RA. MENDOZA CATHETER PATENT AND DRAINING DARK COLORED URINE. IVF TKO WITH ABX INFUSING PER EMAR. ADEQUATE PO INTAKE T/O NIGHT.
[2020-08-20 05:40] LABS: BASOPHILS ABSOLUTE AUTO 0.03 K/mm3 (0.00-0.23); BASOPHILS PERCENT AUTO 0 % (0-2); EOSINOPHILS ABSOLUTE AUTO 0.09 K/mm3 (0.00-0.68); EOSINOPHILS PERCENT AUTO 1 % (0-6); Hematocrit 31.6 % (33.0-51.0); Hemoglobin 9.4 g/dL (11.5-16.0); IMMATURE GRAN ABSOLUTE AUTO 0.18 K/mm3 (0.00-0.10); IMMATURE GRAN PERCENT AUTO 1 % (0-1); LYMPHOCYTES ABSOLUTE AUTO 1.02 K/mm3 (0.84-5.20); LYMPHOCYTES PERCENT AUTO 6 % (21-46); MONOCYTES PERCENT AUTO 5 % (4-13); Mean Corpuscular HGB 27.5 pg (26.0-34.0); Mean Corpuscular HGB Conc 29.7 g/dL (31.5-36.5); Mean Corpuscular Volume 92 fL (80-100); Mean Platelet Volume 12.2 fL (9.1-12.4); NEUTROPHILS PERCENT AUTO 88 % (41-73); Platelet Count 146 K/mm3 (150-400); RDW Coefficient Variation 18.2 % (11.7-14.2); RDW Standard Deviation 61.9 fL (35.1-46.3); Red Blood Cell Count 3.42 M/mm3 (3.80-5.20); White Blood Cell Count 17.62 K/mm3 (4.00-11.30)
[2020-08-20 05:59] LABS: Alanine Aminotransfer (ALT/SGP 44 U/L (12-78); Albumin, Blood 1.5 g/dL (3.4-5.0); Albumin/Globulin Ratio 0.4 (0.8-1.8); Alk Phos 248 U/L (50-136); Anion Gap 6 mmol/L (6-16); Aspartate Aminotrans (AST/SGOT 29 U/L (12-37); Bilirubin, Total 0.9 mg/dL (0.1-1.0); Blood Urea Nitrogen 16 mg/dL (8-24); Bun/Creatinine Ratio 21.1 (12.0-20.0); CO2, Blood 26 mmol/L (21-32); Calcium, Blood 7.9 mg/dL (8.5-10.1); Chloride, Blood 112 mmol/L (98-108); Creatinine, Blood 0.76 mg/dL (0.40-1.00); Globulin, Blood 4.1 g/dL (2.2-4.0); Glomerular Filtration Rate >60 (60-); Glucose, Blood 84 mg/dL (70-99); Potassium, Blood 3.6 mmol/L (3.5-5.5); Sodium, Blood 144 mmol/L (136-145); Total Protein, Blood 5.6 g/dL (6.4-8.2)
--- NOTE | 2020-08-20 08:58 | NUR ---
DR ESPINOSA RECENTLY HERE, REPORTS TO D/C TELE. DISCUSSED GRANDSON STATING THAT PT WAS C/O SORE THROAT AND REQ PT TO HAVE THROAT SPRAY.
--- NOTE | 2020-08-20 09:30 | NUR ---
PT REQ FOR PILLS NOT TO BE CRUSHED. PT GIVEN SOME LIQUID WITHOUT DIFFICULTY AND HAS NOT APPEARED TO HAVE ANY DIFFICULTY SWALLOWING APPLESAUCE OR WHAT SHE HAD FOR BREAKFEAST. PT GIVEN MEDICATION WITHOUT DIFFICULTY WITH ASP PRECAUTIONS IN PLACE. HOB ELEVATED.
--- NOTE | 2020-08-20 11:50 | NUR ---
PT RECENTLY MED WITHOUT DIFFICULTY. PT CLEANED UP AND REPOSITIONED. PT NOW TO IMAGING BY [facility]. PT TRANSFERED TO [facility] WITH MULT ASSIST.
--- NOTE | 2020-08-20 12:30 | NUR ---
PT RECENTLY BACK FROM IMAGING, TO BED WITH MULT ASSIST.
--- NOTE | 2020-08-20 14:57 | NUR ---
pt worked with ot, up to chair, family present.
--- NOTE | 2020-08-20 17:23 | NUR ---
DR ESPINOSA REPORTS TO Kash MENDOZA THIS EVENING.
--- NOTE | 2020-08-20 18:03 | NUR ---
SHIFT SUMMARY PT EATING AND DRINKING WITH ASSIST AND ASP PRECAUTIONS IN PLACE. PT BEEN REPOSITIONED MULT TIMES TODAY. BLE BEEN ELEVATED WITH PILLOWS, ARMS ALSO BEEN ELEVATED. PT WORKED WITH THERAPY TODAY AND WAS UP TO CHAIR TODAY. PT HAD FAMILY IN TODAY. KELLY WAS DC'D THIS EVENING PER DR ESPINOSA. BED ALARM IN PLACE. WILL REPORT TO ONCOMING NURSE. PT HAS MEPILEX IN PLACE.
--- NOTE | 2020-08-21 04:43 | NUR ---
SHIFT SUMMMARY S/P CHOLECYSTITIS, A/O, VSS OTHER THAN ELEVATED BP (SEE VITAL SIGNS), PT HTN MEDS CHANGED DURING PRIOR SHIFT, TOLERATING DIET/PO, MENDOZA REMOVED NEAR THE END OF PRIOR SHIFT AND PT HAS BEEN ABLE TO VOID SINCE IT WAS REMOVED, SMALL BM THIS SHIFT, NO ACUTE EVENTS THIS SHIFT. CALL LIGHT IN REACH, WILL CONTINUE TO MONITOR AND REPORT TO ONCOMING DAY RN.
--- NOTE | 2020-08-21 12:35 | NUR ---
DR. BUTLER NOTIFIED THAT PT'S GRANDSON IS REQUESTING A CALL REGARDING THE PATIENT'S CURRENT SITUATION. SHE WAS ALSO NOTIFIED THAT PT COMPLAINED OF HEART BURN THIS MORNING. DISCUSSED TYLENOL FOR USE PAIN MEDICATION AND POSSIBLE ALTERNATIVES, NYSTATIN CREAM REQUESTED AND DR. BUTLER WAS NOTIFIED OF BP OF 177/80
--- NOTE | 2020-08-21 15:53 | NUR ---
SHIFT SUMMARY PAIN MANAGED WITH TYLENOL, DISCUSSED NEED FOR POSSIBLE CHANGE IN PAIN MEDICATION WITH DR. BUTLER. PT'S ABILITY TO SWALLOW IS IMPROVING AND SHE IS NOW ABLE TO TOLERATE THIN LIQUIDS. PT COMPLAINED OF HEART BURN THIS MORNING, DR. BUTLER NOTIFIED. BP HAS IMPROVED THIS EVENING. VSS. REPORT GIVEN TO NADIA GARCIA.
[2020-08-21 18:28] LABS: Albumin, Blood 1.6 g/dL (3.4-5.0); Albumin/Globulin Ratio 0.3 (0.8-1.8); Bilirubin, Direct 0.6 mg/dL (0.0-0.3); Bilirubin, Indirect 0.1 mg/dL (0.1-0.7); Bilirubin, Total 0.7 mg/dL (0.1-1.0); Globulin, Blood 4.6 g/dL (2.2-4.0); Total Protein, Blood 6.2 g/dL (6.4-8.2)
--- NOTE | 2020-08-21 22:28 | NUR ---
LEONIE REPORT TRANSFER REPORT GIVEN TO MOHAN GARCIA @ [facility].
--- NOTE | 2020-08-21 22:37 | NUR ---
DISCHARGE SUMMARY PT A/O, VSS, PAIN WELL MANAGED W/ ORAL MEDS (SEE EMAR), PT PICKED UP BY [facility] @ 2230, PT DEPARTED W/ ALL POSSESSIONS EXCEPT GO, PT WAS ASKED IF SHE WANTED US TO NOTIFY HER GRANDSON WHO HAS BEEN WORKING WITH THE DOCTORS TO GUIDE CARE IN WHICH SHE SAID NO. PT ASKED IF SHE WANTED US TO KEEP HER GO FOR SOMEONE TO MARKING DEVICES ASSEMBLER IN WHICH SHE ALSO SAID NO. PT IN STABLE CONDITION AT TIME OF DEPARTURE, REPORT GIVEN TO EMS AND MOHAN GARCIA AT [facility].
== END 2020-08-21 22:35 | disposition short-term general hospital (02) | DRG 871 ==
LOC: ER 12:03 → ICUW 16:52 → SURS 16:52 → ICUW 17:54 → SURS 08-15 12:55
PROVIDERS: Family Medicine; Hospitalist; Internal Medicine; Internal Medicine Critical Care Medicine; Internal Medicine Pulmonary Disease; Physician Assistant; Surgery; ADMIT Internal Medicine
PROC: 5A09357 Assistance with Respiratory Ventilation, Less than 24 Consecutive Hours, Continuous Positive Airway Pressure (ICD-10-PCS; principal; 2020-08-09)
PROC: 0BH18EZ Insertion of Endotracheal Airway into Trachea, Via Natural or Artificial Opening Endoscopic (ICD-10-PCS; 2020-08-09)
PROC: 06HM33Z Insertion of Infusion Device into Right Femoral Vein, Percutaneous Approach (ICD-10-PCS; 2020-08-09)
PROC: 04HY32Z Insertion of Monitoring Device into Lower Artery, Percutaneous Approach (ICD-10-PCS; 2020-08-09)
PROC: 4A133B1 Monitoring of Arterial Pressure, Peripheral, Percutaneous Approach (ICD-10-PCS; 2020-08-09)
PROC: 4A133J1 Monitoring of Arterial Pulse, Peripheral, Percutaneous Approach (ICD-10-PCS; 2020-08-09)
PROC: 5A1945Z Respiratory Ventilation, 24-96 Consecutive Hours (ICD-10-PCS; 2020-08-09)
PROC: 0F9430Z Drainage of Gallbladder with Drainage Device, Percutaneous Approach (ICD-10-PCS; 2020-08-10)
PROC: 3E033XZ Introduction of Vasopressor into Peripheral Vein, Percutaneous Approach (ICD-10-PCS; 2020-08-11)
PROC: 0FPBX0Z Removal of Drainage Device from Hepatobiliary Duct, External Approach (ICD-10-PCS; 2020-08-18)
DX: A41.51 Sepsis due to Escherichia coli [E. coli] (principal); K85.10 Biliary acute pancreatitis without necrosis or infection; R65.21 Severe sepsis with septic shock; K72.00 Acute and subacute hepatic failure without coma; N17.0 Acute kidney failure with tubular necrosis; I50.21 Acute systolic (congestive) heart failure; I21.A1 Myocardial infarction type 2; J96.01 Acute respiratory failure with hypoxia; K80.43 Calculus of bile duct with acute cholecystitis with obstruction; E87.4 Mixed disorder of acid-base balance; N39.0 Urinary tract infection, site not specified; E87.0 Hyperosmolality and hypernatremia; I13.0 Hypertensive heart and chronic kidney disease with heart failure and stage 1 through stage 4 chronic kidney disease, or unspecified chronic kidney disease; I42.0 Dilated cardiomyopathy; T85.520A Displacement of bile duct prosthesis, initial encounter; Z66 Do not resuscitate; E03.9 Hypothyroidism, unspecified; K21.9 Gastro-esophageal reflux disease without esophagitis; E86.0 Dehydration; Z20.822 Contact with and (suspected) exposure to COVID-19; I44.0 Atrioventricular block, first degree; M85.80 Other specified disorders of bone density and structure, unspecified site; K44.9 Diaphragmatic hernia without obstruction or gangrene; D63.1 Anemia in chronic kidney disease; E78.1 Pure hyperglyceridemia; E55.9 Vitamin D deficiency, unspecified; E66.3 Overweight; M79.7 Fibromyalgia; N18.30 Chronic kidney disease, stage 3 unspecified; D72.829 Elevated white blood cell count, unspecified; E87.6 Hypokalemia; T38.0X5A Adverse effect of glucocorticoids and synthetic analogues, initial encounter; M19.90 Unspecified osteoarthritis, unspecified site; I25.10 Atherosclerotic heart disease of native coronary artery without angina pectoris; I48.0 Paroxysmal atrial fibrillation; R47.1 Dysarthria and anarthria; D69.59 Other secondary thrombocytopenia; T85.9XXA Unspecified complication of internal prosthetic device, implant and graft, initial encounter; Z90.710 Acquired absence of both cervix and uterus; Z88.6 Allergy status to analgesic agent; Z88.8 Allergy status to other drugs, medicaments and biological substances; Z86.73 Personal history of transient ischemic attack (TIA), and cerebral infarction without residual deficits; Z90.49 Acquired absence of other specified parts of digestive tract; Z90.11 Acquired absence of right breast and nipple; Z98.890 Other specified postprocedural states; Z90.89 Acquired absence of other organs; Z90.721 Acquired absence of ovaries, unilateral; Z79.02 Long term (current) use of antithrombotics/antiplatelets; Z79.899 Other long term (current) drug therapy; Z85.3 Personal history of malignant neoplasm of breast; Z68.31 Body mass index [BMI] 31.0-31.9, adult; Y83.8 Other surgical procedures as the cause of abnormal reaction of the patient, or of later complication, without mention of misadventure at the time of the procedure; Z95.2 Presence of prosthetic heart valve; Z78.1 Physical restraint status
CPT/HCPCS: 0097U; 0241U; 31500; 31720; 36415; 36556; 36600; 36620; 49405; 51702; 71045; 74018; 74174; 74176; 74181; 75989; 76380; 76705; 80048; 80053; 80076; 81001; 82330; 82803; 82947; 83605; 83690; 83735; 83880; 84100; 84132; 84484; 85025; 85610; 85730; 86850; 86900; 86901; 87040; 87070; 87075; 87077; 87086; 87186; 87205; 87493; 89051; 92526; 92610; 93005; 93010; 94002; 94003; 94640; 94660; 94667; 94760; 94762; 96361-59; 96365-59; 96375-59; 97110; 97112; 97162; 97166; 97530; 97535; 99285-25; A9270; C1751; C8929; C9113; J0295; J0330; J0610; J0696; J1170; J1644; J1650; J1720; J1940; J2250; J2370; J2405; J2543; J2704; J3010; J3475; J3480; J7030; J7040; J7050; J7060; J7070; J7120; Q9957; Q9967

== ENCOUNTER → 2023-07-11 | Outpatient (CLI) | payer MEDICARE, OTHER ==
[~2023-07-11] MED LIST changes: +AMLO10 PO; +CLOP75 PO; +FENOFIBRATE48 MG PO; +LATA.005SO BOTHEYES; +LEVSOD100 PO; +LOSARTAN POTAS100 M1 PO; +METOPROLOL TART50 M2 PO; +PANTOPRAZOLE SO40 M2 PO; +ROSUVASTATIN CA10 MG PO; +SODBIC650 PO
[2023-07-12 14:32] LABS: Protein, Urine Quantitative 224.7 mg/dL (0.0-11.9)
== END ==
LOC: LAB SHORT 11:00 → LAB 11:00
PROVIDERS: Internal Medicine
DX: N04.9 Nephrotic syndrome with unspecified morphologic changes (principal); E88.09 Other disorders of plasma-protein metabolism, not elsewhere classified; R60.1 Generalized edema
CPT/HCPCS: 81050; 84156

== ENCOUNTER → 2023-09-01 | Outpatient (CLI) | payer MEDICARE, OTHER ==
[~2023-09-01] MED LIST changes: -AMLO10 PO; +AMLO5 PO; +EUTHYROX88 MC1 PO; +FUROSEMIDE20 MG PO; +GABA100 PO; +K-Dur10 MEQ PO; +LEVOTHYROXINE100 M10 PO; +NIFE60ER PO
[2023-09-01 19:14] LABS: BASOPHILS ABSOLUTE AUTO 0.05 K/mm3 (0.00-0.23); BASOPHILS PERCENT AUTO 0 % (0-2); EOSINOPHILS ABSOLUTE AUTO 0.03 K/mm3 (0.00-0.68); EOSINOPHILS PERCENT AUTO 0 % (0-6); Hematocrit 37.7 % (33.0-51.0); Hemoglobin 11.8 g/dL (11.5-16.0); IMMATURE GRAN ABSOLUTE AUTO 0.06 K/mm3 (0.00-0.10); IMMATURE GRAN PERCENT AUTO 1 % (0-1); LYMPHOCYTES ABSOLUTE AUTO 1.39 K/mm3 (0.84-5.20); LYMPHOCYTES PERCENT AUTO 11 % (21-46); MONOCYTES ABSOLUTE AUTO 0.98 K/mm3 (0.16-1.47); MONOCYTES PERCENT AUTO 8 % (4-13); Mean Corpuscular HGB 33.1 pg (26.0-34.0); Mean Corpuscular HGB Conc 31.3 g/dL (31.5-36.5); Mean Corpuscular Volume 106 fL (80-100); Mean Platelet Volume 10.9 fL (9.1-12.4); NEUTROPHILS ABSOLUTE AUTO 10.02 K/mm3 (1.96-9.15); NEUTROPHILS PERCENT AUTO 80 % (41-73); Platelet Count 263 K/mm3 (150-400); RDW Coefficient Variation 17.5 % (11.7-14.2); RDW Standard Deviation 67.9 fL (35.1-46.3); Red Blood Cell Count 3.57 M/mm3 (3.80-5.20); White Blood Cell Count 12.53 K/mm3 (4.00-11.30)
[2023-09-01 21:00] LABS: Albumin, Blood 1.9 g/dL (3.4-5.0); Albumin/Globulin Ratio 0.5 (0.8-1.8); Bilirubin, Total 0.5 mg/dL (0.1-1.0); Bun/Creatinine Ratio 11.4 (12.0-20.0); Calcium, Blood 8.7 mg/dL (8.5-10.1); Creatinine, Blood 2.71 mg/dL (0.40-1.00); Globulin, Blood 4.1 g/dL (2.2-4.0); Potassium, Blood 2.6 mmol/L (3.5-5.5)
== END | disposition home or self-care (01) ==
LOC: LAB 17:54 → LAB SHORT 17:54
PROVIDERS: Internal Medicine
DX: N18.4 Chronic kidney disease, stage 4 (severe) (principal); N05.1 Unspecified nephritic syndrome with focal and segmental glomerular lesions; E46 Unspecified protein-calorie malnutrition; R63.4 Abnormal weight loss
CPT/HCPCS: 80053; 85025

== ENCOUNTER → 2023-09-09 | Outpatient (CLI) | payer MEDICARE, OTHER ==
[2023-09-09 19:13] LABS: BASOPHILS PERCENT AUTO 0 % (0-2); EOSINOPHILS ABSOLUTE AUTO 0.01 K/mm3 (0.00-0.68); EOSINOPHILS PERCENT AUTO 0 % (0-6); Hematocrit 41.6 % (33.0-51.0); Hemoglobin 12.6 g/dL (11.5-16.0); IMMATURE GRAN ABSOLUTE AUTO 0.04 K/mm3 (0.00-0.10); IMMATURE GRAN PERCENT AUTO 1 % (0-1); LYMPHOCYTES ABSOLUTE AUTO 0.56 K/mm3 (0.84-5.20); LYMPHOCYTES PERCENT AUTO 7 % (21-46); MONOCYTES ABSOLUTE AUTO 0.17 K/mm3 (0.16-1.47); MONOCYTES PERCENT AUTO 2 % (4-13); Mean Corpuscular HGB Conc 30.3 g/dL (31.5-36.5); Mean Corpuscular Volume 109 fL (80-100); Mean Platelet Volume 11.4 fL (9.1-12.4); NEUTROPHILS ABSOLUTE AUTO 6.94 K/mm3 (1.96-9.15); NEUTROPHILS PERCENT AUTO 90 % (41-73); Platelet Count 185 K/mm3 (150-400); RDW Coefficient Variation 17.1 % (11.7-14.2); RDW Standard Deviation 67.8 fL (35.1-46.3); Red Blood Cell Count 3.82 M/mm3 (3.80-5.20); White Blood Cell Count 7.72 K/mm3 (4.00-11.30)
[2023-09-10 06:35] LABS: Albumin, Blood 2.1 g/dL (3.4-5.0); Albumin/Globulin Ratio 0.6 (0.8-1.8); Bilirubin, Total 0.5 mg/dL (0.1-1.0); Bun/Creatinine Ratio 17.3 (12.0-20.0); Calcium, Blood 8.5 mg/dL (8.5-10.1); Creatinine, Blood 1.96 mg/dL (0.40-1.00); Globulin, Blood 3.7 g/dL (2.2-4.0); Potassium, Blood 4.2 mmol/L (3.5-5.5); Prealbumin, Blood 41.3 mg/dL (20.0-40.0); Thyroid Stimulating Hormone 0.936 uIU/mL (0.360-4.800); Total Protein, Blood 5.8 g/dL (6.4-8.2)
== END | disposition home or self-care (01) ==
LOC: LAB SHORT 18:33 → LAB 18:33
PROVIDERS: Internal Medicine
DX: E03.9 Hypothyroidism, unspecified (principal); N05.1 Unspecified nephritic syndrome with focal and segmental glomerular lesions; N04.9 Nephrotic syndrome with unspecified morphologic changes
CPT/HCPCS: 80053; 84134; 84443; 85025

== ENCOUNTER → 2023-09-23 | Outpatient (CLI) | payer MEDICARE, OTHER | LOC: LAB EV 07:00 → LAB SHORT 07:00 | DX: N04.9 Nephrotic syndrome with unspecified morphologic changes (principal) ==

== ENCOUNTER → 2023-09-28 | Outpatient (CLI) | payer MEDICARE, OTHER | END | disposition home or self-care (01) | LOC: LAB SHORT 10:51 → LAB 10:51 | DX: N17.9 Acute kidney failure, unspecified (principal); N18.4 Chronic kidney disease, stage 4 (severe) ==

== ENCOUNTER → 2023-12-07 | Outpatient (CLI) | payer MEDICARE, OTHER ==
[2023-12-07 15:37] LABS: BASOPHILS ABSOLUTE AUTO 0.09 K/mm3 (0.00-0.23); BASOPHILS PERCENT AUTO 1 % (0-2); EOSINOPHILS ABSOLUTE AUTO 0.19 K/mm3 (0.00-0.68); EOSINOPHILS PERCENT AUTO 3 % (0-6); Hematocrit 40.6 % (33.0-51.0); Hemoglobin 12.7 g/dL (11.5-16.0); IMMATURE GRAN ABSOLUTE AUTO 0.01 K/mm3 (0.00-0.10); IMMATURE GRAN PERCENT AUTO 0 % (0-1); LYMPHOCYTES ABSOLUTE AUTO 1.31 K/mm3 (0.84-5.20); LYMPHOCYTES PERCENT AUTO 21 % (21-46); MONOCYTES ABSOLUTE AUTO 0.45 K/mm3 (0.16-1.47); MONOCYTES PERCENT AUTO 7 % (4-13); Mean Corpuscular HGB 30.8 pg (26.0-34.0); Mean Corpuscular HGB Conc 31.3 g/dL (31.5-36.5); Mean Corpuscular Volume 99 fL (80-100); Mean Platelet Volume 10.6 fL (9.1-12.4); NEUTROPHILS ABSOLUTE AUTO 4.34 K/mm3 (1.96-9.15); NEUTROPHILS PERCENT AUTO 68 % (41-73); Platelet Count 241 K/mm3 (150-400); RDW Coefficient Variation 13.8 % (11.7-14.2); RDW Standard Deviation 50.5 fL (35.1-46.3); Red Blood Cell Count 4.12 M/mm3 (3.80-5.20); White Blood Cell Count 6.39 K/mm3 (4.00-11.30)
[2023-12-07 16:10] LABS: Albumin, Blood 2.2 g/dL (3.4-5.0); Albumin/Globulin Ratio 0.5 (0.8-1.8); Bilirubin, Total 0.6 mg/dL (0.1-1.0); Bun/Creatinine Ratio 17.4 (12.0-20.0); Calcium, Blood 8.5 mg/dL (8.5-10.1); Creatinine, Blood 2.07 mg/dL (0.40-1.00); Globulin, Blood 4.1 g/dL (2.2-4.0); Potassium, Blood 4.1 mmol/L (3.5-5.5); Total Protein, Blood 6.3 g/dL (6.4-8.2)
== END | disposition home or self-care (01) ==
LOC: LAB SHORT 11:50 → LAB 11:50
PROVIDERS: Internal Medicine
DX: I10 Essential (primary) hypertension (principal); N05.1 Unspecified nephritic syndrome with focal and segmental glomerular lesions; R60.1 Generalized edema
CPT/HCPCS: 80053; 85025

== ENCOUNTER → 2023-12-17 | Outpatient (CLI) | payer MEDICARE, OTHER ==
[2023-12-17 18:57] LABS: Protein, Urine Quantitative 167.6 mg/dL (0.0-11.9)
== END ==
LOC: LAB 14:39 → LAB SHORT 14:39
PROVIDERS: Internal Medicine
DX: I10 Essential (primary) hypertension (principal); R60.1 Generalized edema; N05.1 Unspecified nephritic syndrome with focal and segmental glomerular lesions
CPT/HCPCS: 84156

== ENCOUNTER → 2024-02-04 | Outpatient (CLI) | payer MEDICARE, OTHER ==
[2024-02-04 14:29] LABS: BASOPHILS ABSOLUTE AUTO 0.03 K/mm3 (0.00-0.23); BASOPHILS PERCENT AUTO 0 % (0-2); EOSINOPHILS ABSOLUTE AUTO 0.01 K/mm3 (0.00-0.68); EOSINOPHILS PERCENT AUTO 0 % (0-6); Hematocrit 40.3 % (33.0-51.0); IMMATURE GRAN ABSOLUTE AUTO 0.05 K/mm3 (0.00-0.10); IMMATURE GRAN PERCENT AUTO 1 % (0-1); LYMPHOCYTES ABSOLUTE AUTO 0.83 K/mm3 (0.84-5.20); LYMPHOCYTES PERCENT AUTO 8 % (21-46); MONOCYTES PERCENT AUTO 3 % (4-13); Mean Corpuscular HGB 29.6 pg (26.0-34.0); Mean Corpuscular HGB Conc 32.3 g/dL (31.5-36.5); Mean Corpuscular Volume 92 fL (80-100); Mean Platelet Volume 11.4 fL (9.1-12.4); NEUTROPHILS ABSOLUTE AUTO 9.42 K/mm3 (1.96-9.15); NEUTROPHILS PERCENT AUTO 89 % (41-73); Platelet Count 260 K/mm3 (150-400); RDW Coefficient Variation 13.5 % (11.7-14.2); Red Blood Cell Count 4.39 M/mm3 (3.80-5.20); White Blood Cell Count 10.64 K/mm3 (4.00-11.30)
[2024-02-04 14:53] LABS: Albumin, Blood 3.2 g/dL (3.4-5.0); Albumin/Globulin Ratio 0.8 (0.8-1.8); Bilirubin, Total 0.7 mg/dL (0.1-1.0); Bun/Creatinine Ratio 16.5 (12.0-20.0); Calcium, Blood 9.5 mg/dL (8.5-10.1); Creatinine, Blood 2.54 mg/dL (0.40-1.00); Globulin, Blood 4.2 g/dL (2.2-4.0); Percent Saturation 16.8 % (15.0-50.0); Potassium, Blood 3.9 mmol/L (3.5-5.5); Thyroid Stimulating Hormone 3.55 uIU/mL (0.360-4.800); Total Protein, Blood 7.4 g/dL (6.4-8.2)
== END | disposition home or self-care (01) ==
LOC: LAB SHORT 12:54 → LAB 12:54
PROVIDERS: Internal Medicine
DX: E03.9 Hypothyroidism, unspecified (principal); E61.1 Iron deficiency; I10 Essential (primary) hypertension
CPT/HCPCS: 80053; 82728; 83540; 83550; 84443; 85025

== ENCOUNTER → 2024-02-29 | Outpatient (CLI) | payer MEDICARE, OTHER ==
[2024-02-29 18:22] LABS: Albumin, Blood 2.9 g/dL (3.4-5.0); Albumin/Globulin Ratio 0.7 (0.8-1.8); Bilirubin, Total 0.5 mg/dL (0.1-1.0); Bun/Creatinine Ratio 16.7 (12.0-20.0); Calcium, Blood 8.6 mg/dL (8.5-10.1); Creatinine, Blood 3.36 mg/dL (0.40-1.00); Potassium, Blood 4.9 mmol/L (3.5-5.5); Total Protein, Blood 6.9 g/dL (6.4-8.2)
== END | disposition home or self-care (01) ==
LOC: LAB 10:38 → LAB SHORT 10:38
PROVIDERS: Internal Medicine
DX: I10 Essential (primary) hypertension (principal)
CPT/HCPCS: 80053